=== PATIENT | male | born 1970 | race Caucasian/White ===

== ENCOUNTER 2018-01-27 16:27 | Inpatient (IN) | payer OTHER ==
[2018-01-27 18:07] LABS: BASO % 0.1 % (0.0-1.0); EOS % 0.2 % (0.0-3.0); HEMATOCRIT 39.6 % (42.0-52.0); HEMOGLOBIN 12.8 g/dl (13.5-17.5); LYMPH # 0.8 10^3/uL (1.5-4.5); LYMPH % 9.9 % (24.0-44.0); MEAN CORPUSCULAR HEMOGLOBIN 27.2 pg (27.0-33.0); MEAN CORPUSCULAR HGB CONC 32.3 g/dl (32.0-36.5); MEAN CORPUSCULAR VOLUME 84.3 fl (80.0-96.0); MONO # 0.2 10^3/uL (0.0-0.8); MONO % 2.2 % (0.0-5.0); NEUTROPHILS # 6.9 10^3/uL (1.8-7.7); NEUTROPHILS % 86.6 % (36.0-66.0); PLATELET COUNT, AUTOMATED 211 10^3/uL (150-450); RED CELL DISTRIBUTION WIDTH 13.2 % (11.5-14.5)
[2018-01-27 18:21] LABS: PROTHROMBIN TIME 14.4 SECONDS (12.1-14.4)
[2018-01-27 18:22] LABS: PARTIAL THROMBOPLASTIN TIME 31.8 SECONDS (25.4-37.6)
[2018-01-27 18:31] LABS: ALBUMIN 3.1 GM/DL (3.2-5.2); ALBUMIN/GLOBULIN RATIO 0.66 (1.00-1.93); ALKALINE PHOSPHATASE 52 U/L (45-117); ALT/SGPT 15 U/L (12-78); ANION GAP 9 MEQ/L (8-16); AST/SGOT 24 U/L (7-37); BILIRUBIN,DIRECT 0.1 MG/DL (0.0-0.2); BILIRUBIN,TOTAL 0.4 MG/DL (0.2-1.0); BLOOD UREA NITROGEN 19 MG/DL (7-18); CALCIUM LEVEL 8.8 MG/DL (8.5-10.1); CARBON DIOXIDE LEVEL 26 MEQ/L (21-32); CHLORIDE LEVEL 101 MEQ/L (98-107); CK-MB VALUE MASS < 1.0 NG/ML (<3.6); CPK CREATINE PHOSPHOKINASE 70 U/L (39-308); CREATININE FOR GFR 0.99 MG/DL (0.70-1.30); FREE T4 1.31 NG/DL (0.76-1.46); GLOMERULAR FILTRATION RATE > 60.0 (>60); GLUCOSE, FASTING 94 MG/DL (70-100); LIPASE 120 U/L (73-393); MB/CK RELATIVE INDEX 1.43 (< OR =4); POTASSIUM SERUM 4.3 MEQ/L (3.5-5.1); SODIUM LEVEL 136 MEQ/L (136-145); THYROID STIMULATING HORMONE 0.627 uIU/ML (0.358-3.740); TOTAL PROTEIN 7.8 GM/DL (6.4-8.2); TROPONIN I < 0.02 NG/ML (< 0.10)
[2018-01-27] MEDS ORDERED: ISOVUE-370 76% 100ML VIAL (Q9967) As Ordered (19:34)
[2018-01-27] MEDS: PIPERACILLIN/TAZOBACTAM SOD 3.375 GM in D5W MINI-BAG PLUS 50 ML IV (21:30)
[2018-01-28] MEDS: D5W/0.45% SODIUM CHLORIDE 1,000 ML IV ×3 (02:31→20:52)
[2018-01-28] MEDS: ACETAMINOPHEN TAB 650MG DOSE (2X325MG) PO ×2 (02:31→11:38)
[2018-01-28] MEDS: VANCOMYCIN ORAL SOL 250MG/5ML ORAL SYRINGE PO ×5 (02:31→23:45)
[2018-01-28] MEDS: PIPERACILLIN/TAZOBACTAM SOD 3.375 GM in D5W MINI-BAG PLUS 50 ML IV ×3 (05:38→21:01)
[2018-01-28] MEDS: ENOXAPARIN 30 MG/0.3 ML SYR (J1650) SC (07:05)
[2018-01-28 07:58] LABS: ALBUMIN 2.8 GM/DL (3.2-5.2); ALBUMIN/GLOBULIN RATIO 0.61 (1.00-1.93); ALKALINE PHOSPHATASE 48 U/L (45-117); ALT/SGPT 16 U/L (12-78); ANION GAP 10 MEQ/L (8-16); AST/SGOT 27 U/L (7-37); BILIRUBIN,TOTAL 0.4 MG/DL (0.2-1.0); BLOOD UREA NITROGEN 22 MG/DL (7-18); C REACTIVE PROTEIN QUANTITATIV 9.31 MG/DL (0.00-0.30); CALCIUM LEVEL 8.6 MG/DL (8.5-10.1); CARBON DIOXIDE LEVEL 27 MEQ/L (21-32); CHLORIDE LEVEL 101 MEQ/L (98-107); CREATININE FOR GFR 1.09 MG/DL (0.70-1.30); GLOMERULAR FILTRATION RATE > 60.0 (>60); GLUCOSE, FASTING 108 MG/DL (70-100); POTASSIUM SERUM 4.1 MEQ/L (3.5-5.1); SODIUM LEVEL 138 MEQ/L (136-145); TOTAL PROTEIN 7.4 GM/DL (6.4-8.2)
[2018-01-28 08:06] LABS: HEMATOCRIT 38.3 % (42.0-52.0); HEMOGLOBIN 12.3 g/dl (13.5-17.5); MEAN CORPUSCULAR HEMOGLOBIN 27.5 pg (27.0-33.0); MEAN CORPUSCULAR HGB CONC 32.1 g/dl (32.0-36.5); MEAN CORPUSCULAR VOLUME 85.7 fl (80.0-96.0); PLATELET COUNT, AUTOMATED 221 10^3/uL (150-450); RED BLOOD COUNT 4.47 10^6/uL (4.30-6.10); RED CELL DISTRIBUTION WIDTH 13.5 % (11.5-14.5); WHITE BLOOD COUNT 5.1 10^3/uL (4.0-10.0)
[2018-01-28] MEDS: VITAMIN B COMPLEX/VIT C CAP PO (08:22)
[2018-01-28] MEDS: LACTOBACILLUS ACIDOPHILUS CAP (BACID) PO (08:22)
[2018-01-28] MEDS: INFLUENZA QUADRIVALENT PF VACCINE 0.5ML SYRINGE (90686) IM (08:23)
[2018-01-28 10:40] LABS: LDH LACTATE DEHYDROGENASE 251 U/L (87-241)
[2018-01-29] MEDS: VANCOMYCIN ORAL SOL 250MG/5ML ORAL SYRINGE PO ×2 (05:15→13:29)
[2018-01-29] MEDS: PIPERACILLIN/TAZOBACTAM SOD 3.375 GM in D5W MINI-BAG PLUS 50 ML IV ×3 (05:15→21:38)
[2018-01-29 06:54] LABS: BASO % 0.2 % (0.0-1.0); EOS # 0.2 10^3/uL (0.0-0.50); EOS % 3.5 % (0.0-3.0); HEMATOCRIT 33.5 % (42.0-52.0); IMMATURE GRANULOCYTE % 0.5 % (0-3.0); LYMPH % 17.9 % (24.0-44.0); MEAN CORPUSCULAR HEMOGLOBIN 27.4 pg (27.0-33.0); MEAN CORPUSCULAR HGB CONC 32.8 g/dl (32.0-36.5); MEAN CORPUSCULAR VOLUME 83.3 fl (80.0-96.0); MONO # 0.4 10^3/uL (0.0-0.8); MONO % 6.6 % (0.0-5.0); NEUTROPHILS # 3.9 10^3/uL (1.8-7.7); NEUTROPHILS % 71.3 % (36.0-66.0); PLATELET COUNT, AUTOMATED 203 10^3/uL (150-450); RED BLOOD COUNT 4.02 10^6/uL (4.30-6.10); RED CELL DISTRIBUTION WIDTH 13.2 % (11.5-14.5); WHITE BLOOD COUNT 5.5 10^3/uL (4.0-10.0)
[2018-01-29 07:16] LABS: ALBUMIN 2.3 GM/DL (3.2-5.2); ALBUMIN/GLOBULIN RATIO 0.51 (1.00-1.93); ALKALINE PHOSPHATASE 41 U/L (45-117); ALT/SGPT 15 U/L (12-78); ANION GAP 7 MEQ/L (8-16); AST/SGOT 23 U/L (7-37); BILIRUBIN,TOTAL 0.3 MG/DL (0.2-1.0); BLOOD UREA NITROGEN 14 MG/DL (7-18); C REACTIVE PROTEIN QUANTITATIV 7.87 MG/DL (0.00-0.30); CALCIUM LEVEL 8.1 MG/DL (8.5-10.1); CARBON DIOXIDE LEVEL 26 MEQ/L (21-32); CHLORIDE LEVEL 103 MEQ/L (98-107); CREATININE FOR GFR 0.98 MG/DL (0.70-1.30); GLOMERULAR FILTRATION RATE > 60.0 (>60); GLUCOSE, FASTING 99 MG/DL (70-100); POTASSIUM SERUM 3.2 MEQ/L (3.5-5.1); SODIUM LEVEL 136 MEQ/L (136-145); TOTAL PROTEIN 6.8 GM/DL (6.4-8.2)
[2018-01-29] MEDS: ENOXAPARIN 30 MG/0.3 ML SYR (J1650) SC (08:11)
[2018-01-29] MEDS: D5W/0.45% SODIUM CHLORIDE 1,000 ML IV ×2 (08:38→15:37)
[2018-01-29] MEDS ORDERED: LIDOCAINE 1% MDV 20ML VIAL As Ordered (09:23)
[2018-01-29] MEDS ORDERED: LIDOCAINE VISCOUS 2% SOLN 15ML UDC As Ordered (09:25)
[2018-01-29] MEDS ORDERED: LIDOCAINE 4% INJ 5 ML AMP As Ordered ×2 (09:25→09:45)
[2018-01-29] MEDS ORDERED: EPINEPHrine 1MG/10ML SYRINGE 1.5IN As Ordered (09:25)
[2018-01-29] MEDS ORDERED: CETACAINE SPRAY 5GM As Ordered (09:26)
[2018-01-29] MEDS ORDERED: ALBUTEROL SULFATE 2.5 MG/0.5 ML INH NEB SOLN As Ordered (09:46)
[2018-01-29] MEDS: ALBUTEROL SULFATE 2.5 MG/0.5 ML INH NEB SOLN INH (10:00)
[2018-01-29] MEDS: LIDOCAINE 4% INJ 5 ML AMP INH (10:00)
[2018-01-29] MEDS ORDERED: MIDAZOLAM INJ 2 MG/2 ML VIAL (J2250) As Ordered (10:20)
[2018-01-29] MEDS ORDERED: ONDANSETRON 4MG/2ML VIAL (J2405) As Ordered (10:20)
[2018-01-29] MEDS ORDERED: dexameTHASONE 4 MG/ML 1ML VIAL (J1100) As Ordered (10:20)
[2018-01-29] MEDS ORDERED: fentaNYL 100 MCG/2 ML INJECTION (J3010) As Ordered ×2 (10:20→11:05)
[2018-01-29] MEDS ORDERED: LIDOCAINE 2% INJ 100 MG/5 ML SDV (FOR ANES.) As Ordered (10:29)
[2018-01-29] MEDS: LIDOCAINE VISCOUS 2% SOLN 15ML UDC SSP (10:50)
[2018-01-29] MEDS: LIDOCAINE 4% INJ 5 ML AMP XX (10:55)
[2018-01-29] MEDS: CETACAINE SPRAY 5GM MT (10:56)
[2018-01-29] MEDS: LIDOCAINE 1% SDV INJ 30 ML VIAL XX (11:10)
[2018-01-29] MEDS ORDERED: PHENYLephrine HCL 500 MCG/5 ML (100MCG/ML) SYRINGE (J2370) As Ordered (11:10)
[2018-01-29] MEDS: LACTOBACILLUS ACIDOPHILUS CAP (BACID) PO (13:28)
[2018-01-29] MEDS: VITAMIN B COMPLEX/VIT C CAP PO (13:28)
[2018-01-29] MEDS: POTASSIUM CHLORIDE 10 MEQ SR TABLET PO (13:29)
[2018-01-29 14:27] LABS: APPEARANCE TURBID (CLEAR); BAL DIFF IF INDICATED? YES (NO); BAL WBC 322 CELLS/uL (0-10); COLOR COLORLESS (COLORLESS); DILUTION FACTOR 1; SOURCE RIGHT LOWER LOBE; WBC BAL COUNTED 290
[2018-01-29 14:29] LABS: APPEARANCE TURBID (CLEAR); BAL DIFF IF INDICATED? YES (NO); BAL WBC 350 CELLS/uL (0-10); COLOR COLORLESS (COLORLESS); DILUTION FACTOR 1; SOURCE RIGHT UPPER LOBE; WBC BAL COUNTED 315
[2018-01-29 15:23] LABS: MONOCYTES/MACROPHAGES, BAL 9 %
[2018-01-29 15:27] LABS: MONOCYTES/MACROPHAGES, BAL 12 %
[2018-01-29 15:35] LABS: CC BAL DIFF EXAM CYTOCENTRIFUGE
[2018-01-29] MEDS ORDERED: VANCOMYCIN HCL 1,000 MG, VIAL MATE ADAPTER 1 EACH in D5W 250 ML IV ×3 (16:15→18:00)
[2018-01-29] MEDS: predniSONE 20 MG TAB PO (18:53)
[2018-01-29] MEDS: TRIMETHOPRIM/SULFAMETHOXAZOLE 600 MG in D5W 500 ML IV (19:49)
[2018-01-29] MEDS: diphenhydrAMINE 25 MG CAP PO (23:15)
[2018-01-30] MEDS: PIPERACILLIN/TAZOBACTAM SOD 3.375 GM in D5W MINI-BAG PLUS 50 ML IV ×4 (01:32→20:48)
[2018-01-30] MEDS: TRIMETHOPRIM/SULFAMETHOXAZOLE 600 MG in D5W 500 ML IV ×3 (02:39→18:25)
[2018-01-30] MEDS: D5W/0.45% SODIUM CHLORIDE 1,000 ML IV (03:20)
[2018-01-30] MEDS: NS 1,000 ML IV ×3 (03:52→05:46)
[2018-01-30 06:04] LABS: HEMATOCRIT 33.1 % (42.0-52.0); HEMOGLOBIN 10.9 g/dl (13.5-17.5); LYMPH % 16.9 % (24.0-44.0); MEAN CORPUSCULAR HEMOGLOBIN 27.5 pg (27.0-33.0); MEAN CORPUSCULAR HGB CONC 32.9 g/dl (32.0-36.5); MEAN CORPUSCULAR VOLUME 83.6 fl (80.0-96.0); MONO % 5.4 % (0.0-5.0); NEUTROPHILS % 76.8 % (36.0-66.0); PLATELET COUNT, AUTOMATED 180 10^3/uL (150-450); RED BLOOD COUNT 3.96 10^6/uL (4.30-6.10); RED CELL DISTRIBUTION WIDTH 13.2 % (11.5-14.5); WHITE BLOOD COUNT 3.3 10^3/uL (4.0-10.0)
[2018-01-30 06:05] LABS: IMMATURE GRANULOCYTE % 0.9 % (0-3.0); LYMPH # 0.6 10^3/uL (1.5-4.5); MONO # 0.2 10^3/uL (0.0-0.8); NEUTROPHILS # 2.6 10^3/uL (1.8-7.7)
[2018-01-30 06:38] LABS: ALBUMIN 2.2 GM/DL (3.2-5.2); ALBUMIN/GLOBULIN RATIO 0.54 (1.00-1.93); ALKALINE PHOSPHATASE 37 U/L (45-117); ALT/SGPT 13 U/L (12-78); ANION GAP 8 MEQ/L (8-16); AST/SGOT 16 U/L (7-37); BILIRUBIN,TOTAL 0.2 MG/DL (0.2-1.0); BLOOD UREA NITROGEN 8 MG/DL (7-18); CALCIUM LEVEL 8.3 MG/DL (8.5-10.1); CARBON DIOXIDE LEVEL 24 MEQ/L (21-32); CHLORIDE LEVEL 109 MEQ/L (98-107); GLOMERULAR FILTRATION RATE > 60.0 (>60); GLUCOSE, FASTING 153 MG/DL (70-100); POTASSIUM SERUM 4.3 MEQ/L (3.5-5.1); SODIUM LEVEL 141 MEQ/L (136-145); TOTAL PROTEIN 6.3 GM/DL (6.4-8.2)
[2018-01-30 07:38] LABS: CC BAL DIFF EXAM CYTOCENTRIFUGE
[2018-01-30] MEDS: traMADol 50 MG TAB PO ×2 (08:35→14:20)
[2018-01-30] MEDS: LACTOBACILLUS ACIDOPHILUS CAP (BACID) PO (09:17)
[2018-01-30] MEDS: ENOXAPARIN 30 MG/0.3 ML SYR (J1650) SC (09:18)
[2018-01-30 10:57] LABS: HEPATITIS C VIRUS ABY INDEX 0.1 INDEX (<0.8)
[2018-01-30 10:57] LABS: HEPATITIS B SURFACE ANTIBODY NEGATIVE (POSITIVE); HEPATITIS B SURFACE ANTIGEN NEGATIVE (NEGATIVE)
[2018-01-30 14:13] LABS: HIV-1 RNA ULTRA 1 68870 copies/mL (.); HIV-1 RNA ULTRA 3 4.838 (.)
[2018-01-30] MEDS: VITAMIN B COMPLEX/VIT C CAP PO (14:19)
[2018-01-30] MEDS: SLF 3 ML SYR IV ×2 (14:20→20:48)
[2018-01-30] MEDS: predniSONE 20 MG TAB PO (18:25)
[2018-01-30] MEDS: ACETAMINOPHEN TAB 650MG DOSE (2X325MG) PO (20:49)
[2018-01-31] MEDS: TRIMETHOPRIM/SULFAMETHOXAZOLE 600 MG in D5W 500 ML IV ×3 (01:44→18:26)
[2018-01-31] MEDS: PIPERACILLIN/TAZOBACTAM SOD 3.375 GM in D5W MINI-BAG PLUS 50 ML IV ×4 (03:44→20:00)
[2018-01-31] MEDS: SLF 3 ML SYR IV ×3 (05:50→21:29)
[2018-01-31] MEDS: traMADol 50 MG TAB PO ×2 (05:55→20:22)
[2018-01-31 06:31] LABS: BASO % 0.2 % (0.0-1.0); HEMATOCRIT 34.7 % (42.0-52.0); HEMOGLOBIN 11.4 g/dl (13.5-17.5); IMMATURE GRANULOCYTE % 1.4 % (0-3.0); LYMPH # 0.5 10^3/uL (1.5-4.5); LYMPH % 10.3 % (24.0-44.0); MEAN CORPUSCULAR HEMOGLOBIN 27.1 pg (27.0-33.0); MEAN CORPUSCULAR HGB CONC 32.9 g/dl (32.0-36.5); MEAN CORPUSCULAR VOLUME 82.6 fl (80.0-96.0); MONO # 0.3 10^3/uL (0.0-0.8); MONO % 5.3 % (0.0-5.0); NEUTROPHILS # 4.3 10^3/uL (1.8-7.7); NEUTROPHILS % 82.8 % (36.0-66.0); PLATELET COUNT, AUTOMATED 206 10^3/uL (150-450); RED CELL DISTRIBUTION WIDTH 13.3 % (11.5-14.5); WHITE BLOOD COUNT 5.1 10^3/uL (4.0-10.0)
[2018-01-31 06:57] LABS: ALBUMIN 2.1 GM/DL (3.2-5.2); ALBUMIN/GLOBULIN RATIO 0.49 (1.00-1.93); ALKALINE PHOSPHATASE 38 U/L (45-117); ALT/SGPT 12 U/L (12-78); ANION GAP 8 MEQ/L (8-16); AST/SGOT 20 U/L (7-37); BILIRUBIN,TOTAL 0.2 MG/DL (0.2-1.0); BLOOD UREA NITROGEN 8 MG/DL (7-18); C REACTIVE PROTEIN QUANTITATIV 6.54 MG/DL (0.00-0.30); CARBON DIOXIDE LEVEL 24 MEQ/L (21-32); CHLORIDE LEVEL 105 MEQ/L (98-107); CREATININE FOR GFR 1.14 MG/DL (0.70-1.30); GLOMERULAR FILTRATION RATE > 60.0 (>60); GLUCOSE, FASTING 126 MG/DL (70-100); POTASSIUM SERUM 4.3 MEQ/L (3.5-5.1); SODIUM LEVEL 137 MEQ/L (136-145); TOTAL PROTEIN 6.4 GM/DL (6.4-8.2)
[2018-01-31] MEDS: LACTOBACILLUS ACIDOPHILUS CAP (BACID) PO (09:38)
[2018-01-31] MEDS: ENOXAPARIN 30 MG/0.3 ML SYR (J1650) SC (09:39)
[2018-01-31] MEDS: VITAMIN B COMPLEX/VIT C CAP PO (10:35)
[2018-01-31] MEDS: ONDANSETRON 4 MG TAB (S0181) PO (14:38)
[2018-01-31] MEDS: ONDANSETRON 4MG/2ML VIAL (J2405) IV ×2 (16:36→20:22)
[2018-01-31] MEDS: predniSONE 20 MG TAB PO (18:26)
[2018-01-31] MEDS: ACETAMINOPHEN TAB 650MG DOSE (2X325MG) PO (21:07)
[2018-02-01 00:06] LABS: QuantiFERON-TB Gold Plus Negative (Negative)
[2018-02-01] MEDS: PIPERACILLIN/TAZOBACTAM SOD 3.375 GM in D5W MINI-BAG PLUS 50 ML IV ×4 (01:21→20:00)
[2018-02-01] MEDS: TRIMETHOPRIM/SULFAMETHOXAZOLE 600 MG in D5W 500 ML IV ×3 (02:50→17:50)
[2018-02-01] MEDS: SLF 3 ML SYR IV ×3 (05:04→21:10)
[2018-02-01 05:17] LABS: HEMATOCRIT 34.9 % (42.0-52.0); HEMOGLOBIN 11.4 g/dl (13.5-17.5); IMMATURE GRANULOCYTE % 0.6 % (0-3.0); LYMPH # 0.5 10^3/uL (1.5-4.5); LYMPH % 9.6 % (24.0-44.0); MEAN CORPUSCULAR HEMOGLOBIN 27.1 pg (27.0-33.0); MEAN CORPUSCULAR HGB CONC 32.7 g/dl (32.0-36.5); MEAN CORPUSCULAR VOLUME 82.9 fl (80.0-96.0); MONO # 0.2 10^3/uL (0.0-0.8); MONO % 3.1 % (0.0-5.0); NEUTROPHILS # 4.2 10^3/uL (1.8-7.7); NEUTROPHILS % 86.7 % (36.0-66.0); PLATELET COUNT, AUTOMATED 201 10^3/uL (150-450); RED BLOOD COUNT 4.21 10^6/uL (4.30-6.10); RED CELL DISTRIBUTION WIDTH 13.5 % (11.5-14.5); WHITE BLOOD COUNT 4.8 10^3/uL (4.0-10.0)
[2018-02-01 05:47] LABS: ALKALINE PHOSPHATASE 42 U/L (45-117); ALT/SGPT 13 U/L (12-78); ANION GAP 6 MEQ/L (8-16); AST/SGOT 21 U/L (7-37); BILIRUBIN,TOTAL 0.2 MG/DL (0.2-1.0); BLOOD UREA NITROGEN 10 MG/DL (7-18); CALCIUM LEVEL 8.5 MG/DL (8.5-10.1); CARBON DIOXIDE LEVEL 28 MEQ/L (21-32); CHLORIDE LEVEL 100 MEQ/L (98-107); CREATININE FOR GFR 1.05 MG/DL (0.70-1.30); GLOMERULAR FILTRATION RATE > 60.0 (>60); GLUCOSE, FASTING 176 MG/DL (70-100); POTASSIUM SERUM 4.5 MEQ/L (3.5-5.1); SODIUM LEVEL 134 MEQ/L (136-145)
[2018-02-01] MEDS: traMADol 50 MG TAB PO ×2 (06:04→21:10)
[2018-02-01] MEDS: LACTOBACILLUS ACIDOPHILUS CAP (BACID) PO (09:29)
[2018-02-01] MEDS: VITAMIN B COMPLEX/VIT C CAP PO (09:29)
[2018-02-01] MEDS: predniSONE 20 MG TAB PO ×2 (09:29→21:09)
[2018-02-01] MEDS: ENOXAPARIN 30 MG/0.3 ML SYR (J1650) SC (09:31)
[2018-02-01] MEDS: CALCIUM CARBONATE 500 MG CHEW U/D PO (13:31)
[2018-02-01] MEDS: MAALOX 30 ML SUSP *UDC PO (16:24)
[2018-02-01] MEDS: ACETAMINOPHEN TAB 650MG DOSE (2X325MG) PO (23:44)
[2018-02-01] MEDS: ONDANSETRON 4 MG TAB (S0181) PO (23:45)
[2018-02-02] MEDS: PIPERACILLIN/TAZOBACTAM SOD 3.375 GM in D5W MINI-BAG PLUS 50 ML IV ×4 (02:00→20:08)
[2018-02-02] MEDS: TRIMETHOPRIM/SULFAMETHOXAZOLE 600 MG in D5W 500 ML IV ×3 (03:00→18:38)
[2018-02-02] MEDS: traMADol 50 MG TAB PO ×3 (04:57→22:35)
[2018-02-02] MEDS: ONDANSETRON 4 MG TAB (S0181) PO ×2 (04:58→09:07)
[2018-02-02] MEDS: ONDANSETRON 4MG/2ML VIAL (J2405) IV ×3 (05:00→16:32)
[2018-02-02] MEDS: SLF 3 ML SYR IV ×3 (05:16→20:08)
[2018-02-02 05:30] LABS: BASO % 0.2 % (0.0-1.0); HEMATOCRIT 34.8 % (42.0-52.0); HEMOGLOBIN 11.3 g/dl (13.5-17.5); IMMATURE GRANULOCYTE % 1.2 % (0-3.0); LYMPH # 0.5 10^3/uL (1.5-4.5); MEAN CORPUSCULAR HEMOGLOBIN 27.1 pg (27.0-33.0); MEAN CORPUSCULAR HGB CONC 32.5 g/dl (32.0-36.5); MEAN CORPUSCULAR VOLUME 83.5 fl (80.0-96.0); MONO # 0.1 10^3/uL (0.0-0.8); MONO % 2.2 % (0.0-5.0); NEUTROPHILS # 4.3 10^3/uL (1.8-7.7); NEUTROPHILS % 86.4 % (36.0-66.0); PLATELET COUNT, AUTOMATED 201 10^3/uL (150-450); RED BLOOD COUNT 4.17 10^6/uL (4.30-6.10); RED CELL DISTRIBUTION WIDTH 13.4 % (11.5-14.5)
[2018-02-02 05:43] LABS: ALBUMIN/GLOBULIN RATIO 0.43 (1.00-1.93); ALKALINE PHOSPHATASE 41 U/L (45-117); ALT/SGPT 14 U/L (12-78); ANION GAP 8 MEQ/L (8-16); AST/SGOT 21 U/L (7-37); BILIRUBIN,TOTAL 0.1 MG/DL (0.2-1.0); BLOOD UREA NITROGEN 13 MG/DL (7-18); C REACTIVE PROTEIN QUANTITATIV 7.36 MG/DL (0.00-0.30); CALCIUM LEVEL 8.5 MG/DL (8.5-10.1); CARBON DIOXIDE LEVEL 27 MEQ/L (21-32); CHLORIDE LEVEL 98 MEQ/L (98-107); CREATININE FOR GFR 1.11 MG/DL (0.70-1.30); GLOMERULAR FILTRATION RATE > 60.0 (>60); GLUCOSE, FASTING 187 MG/DL (70-100); POTASSIUM SERUM 4.3 MEQ/L (3.5-5.1); SODIUM LEVEL 133 MEQ/L (136-145); TOTAL PROTEIN 6.7 GM/DL (6.4-8.2)
[2018-02-02] MEDS: predniSONE 20 MG TAB PO (09:07)
[2018-02-02] MEDS: ENOXAPARIN 30 MG/0.3 ML SYR (J1650) SC (09:07)
[2018-02-02] MEDS: VITAMIN B COMPLEX/VIT C CAP PO (09:07)
[2018-02-02] MEDS: LACTOBACILLUS ACIDOPHILUS CAP (BACID) PO (09:07)
[2018-02-02] MEDS: PANTOPRAZOLE 40MG TAB (PROTONIX) PO (10:57)
[2018-02-02] MEDS: MAALOX 30 ML SUSP *UDC PO ×3 (11:05→22:34)
[2018-02-02] MEDS: methylPREDNISolone INJ 125 MG/2 ML VIAL (J2930) IV (18:41)
[2018-02-03] MEDS: TRIMETHOPRIM/SULFAMETHOXAZOLE 600 MG in D5W 500 ML IV ×3 (01:58→18:18)
[2018-02-03] MEDS: PIPERACILLIN/TAZOBACTAM SOD 3.375 GM in D5W MINI-BAG PLUS 50 ML IV ×4 (03:23→19:34)
[2018-02-03 05:45] LABS: HEMATOCRIT 34.2 % (42.0-52.0); IMMATURE GRANULOCYTE % 0.9 % (0-3.0); LYMPH # 0.3 10^3/uL (1.5-4.5); LYMPH % 10.2 % (24.0-44.0); MEAN CORPUSCULAR HEMOGLOBIN 26.6 pg (27.0-33.0); MEAN CORPUSCULAR HGB CONC 32.2 g/dl (32.0-36.5); MEAN CORPUSCULAR VOLUME 82.8 fl (80.0-96.0); MONO # 0.2 10^3/uL (0.0-0.8); MONO % 4.6 % (0.0-5.0); NEUTROPHILS # 2.7 10^3/uL (1.8-7.7); NEUTROPHILS % 84.3 % (36.0-66.0); PLATELET COUNT, AUTOMATED 190 10^3/uL (150-450); RED BLOOD COUNT 4.13 10^6/uL (4.30-6.10); RED CELL DISTRIBUTION WIDTH 13.5 % (11.5-14.5); WHITE BLOOD COUNT 3.3 10^3/uL (4.0-10.0)
[2018-02-03] MEDS: methylPREDNISolone INJ 125 MG/2 ML VIAL (J2930) IV (05:52)
[2018-02-03] MEDS: SLF 3 ML SYR IV ×3 (05:52→19:35)
[2018-02-03 06:23] LABS: ALBUMIN/GLOBULIN RATIO 0.43 (1.00-1.93); ALKALINE PHOSPHATASE 40 U/L (45-117); ALT/SGPT 13 U/L (12-78); ANION GAP 11 MEQ/L (8-16); AST/SGOT 20 U/L (7-37); BILIRUBIN,TOTAL 0.2 MG/DL (0.2-1.0); BLOOD UREA NITROGEN 14 MG/DL (7-18); C REACTIVE PROTEIN QUANTITATIV 2.55 MG/DL (0.00-0.30); CALCIUM LEVEL 8.3 MG/DL (8.5-10.1); CARBON DIOXIDE LEVEL 23 MEQ/L (21-32); CHLORIDE LEVEL 99 MEQ/L (98-107); CREATININE FOR GFR 1.06 MG/DL (0.70-1.30); GLOMERULAR FILTRATION RATE > 60.0 (>60); GLUCOSE, FASTING 108 MG/DL (70-100); POTASSIUM SERUM 4.2 MEQ/L (3.5-5.1); SODIUM LEVEL 133 MEQ/L (136-145); TOTAL PROTEIN 6.6 GM/DL (6.4-8.2)
[2018-02-03 08:06] LABS: HEPATITIS B CORE ANTIBODY IGG Negative (Negative); RPR Reactive (Non Reactive); T PALLIDUM ANTIBODIES Positive (Negative)
[2018-02-03 08:06] LABS: HEPATITIS A IgG TOTAL Positive (Negative)
[2018-02-03] MEDS: LACTOBACILLUS ACIDOPHILUS CAP (BACID) PO (08:17)
[2018-02-03] MEDS: ENOXAPARIN 30 MG/0.3 ML SYR (J1650) SC (08:17)
[2018-02-03] MEDS: VITAMIN B COMPLEX/VIT C CAP PO (08:17)
[2018-02-03] MEDS: PANTOPRAZOLE 40MG INJ (PROTONIX) (C9113) IV (08:17)
[2018-02-03] MEDS: ONDANSETRON 4MG/2ML VIAL (J2405) IV ×3 (08:55→18:18)
[2018-02-03] MEDS: MAALOX 30 ML SUSP *UDC PO ×2 (08:55→14:29)
[2018-02-03] MEDS: ONDANSETRON 4 MG TAB (S0181) PO (19:35)
[2018-02-04] MEDS: MAALOX 30 ML SUSP *UDC PO (00:54)
[2018-02-04] MEDS: ONDANSETRON 4MG/2ML VIAL (J2405) IV ×4 (00:54→22:53)
[2018-02-04] MEDS: PIPERACILLIN/TAZOBACTAM SOD 3.375 GM in D5W MINI-BAG PLUS 50 ML IV ×4 (01:00→19:45)
[2018-02-04] MEDS: TRIMETHOPRIM/SULFAMETHOXAZOLE 600 MG in D5W 500 ML IV ×3 (02:00→18:12)
[2018-02-04] MEDS: traMADol 50 MG TAB PO (05:03)
[2018-02-04] MEDS: SLF 3 ML SYR IV ×3 (05:36→22:00)
[2018-02-04 05:46] LABS: HEMATOCRIT 37.6 % (42.0-52.0); HEMOGLOBIN 12.5 g/dl (13.5-17.5); IMMATURE GRANULOCYTE % 1.3 % (0-3.0); LYMPH # 0.3 10^3/uL (1.5-4.5); LYMPH % 7.5 % (24.0-44.0); MEAN CORPUSCULAR HEMOGLOBIN 27.1 pg (27.0-33.0); MEAN CORPUSCULAR HGB CONC 33.2 g/dl (32.0-36.5); MEAN CORPUSCULAR VOLUME 81.6 fl (80.0-96.0); MONO # 0.1 10^3/uL (0.0-0.8); MONO % 3.3 % (0.0-5.0); NEUTROPHILS # 3.5 10^3/uL (1.8-7.7); NEUTROPHILS % 87.9 % (36.0-66.0); PLATELET COUNT, AUTOMATED 171 10^3/uL (150-450); RED BLOOD COUNT 4.61 10^6/uL (4.30-6.10); RED CELL DISTRIBUTION WIDTH 13.5 % (11.5-14.5)
[2018-02-04 06:17] LABS: ALBUMIN 2.3 GM/DL (3.2-5.2); ALBUMIN/GLOBULIN RATIO 0.48 (1.00-1.93); ALKALINE PHOSPHATASE 48 U/L (45-117); ALT/SGPT 18 U/L (12-78); ANION GAP 8 MEQ/L (8-16); AST/SGOT 24 U/L (7-37); BILIRUBIN,TOTAL 0.2 MG/DL (0.2-1.0); BLOOD UREA NITROGEN 15 MG/DL (7-18); C REACTIVE PROTEIN QUANTITATIV 1.74 MG/DL (0.00-0.30); CALCIUM LEVEL 8.6 MG/DL (8.5-10.1); CARBON DIOXIDE LEVEL 27 MEQ/L (21-32); CHLORIDE LEVEL 92 MEQ/L (98-107); CREATININE FOR GFR 1.31 MG/DL (0.70-1.30); GLOMERULAR FILTRATION RATE > 60.0 (>60); GLUCOSE, FASTING 89 MG/DL (70-100); POTASSIUM SERUM 4.1 MEQ/L (3.5-5.1); SODIUM LEVEL 127 MEQ/L (136-145); TOTAL PROTEIN 7.1 GM/DL (6.4-8.2)
[2018-02-04] MEDS: methylPREDNISolone INJ 40 MG/1 ML VIAL (J2920) IV (08:28)
[2018-02-04] MEDS: ACETAMINOPHEN TAB 650MG DOSE (2X325MG) PO ×2 (08:28→23:48)
[2018-02-04] MEDS: PANTOPRAZOLE 40MG INJ (PROTONIX) (C9113) IV (08:28)
[2018-02-04] MEDS: ENOXAPARIN 30 MG/0.3 ML SYR (J1650) SC (08:29)
[2018-02-04] MEDS: VITAMIN B COMPLEX/VIT C CAP PO (11:01)
[2018-02-04] MEDS: METOCLOPRAMIDE INJ 10MG/2ML VIAL (J2765) IV ×2 (11:01→18:12)
[2018-02-04] MEDS: LACTOBACILLUS ACIDOPHILUS CAP (BACID) PO (11:01)
[2018-02-05] MEDS: PIPERACILLIN/TAZOBACTAM SOD 3.375 GM in D5W MINI-BAG PLUS 50 ML IV ×4 (01:23→21:14)
[2018-02-05] MEDS: TRIMETHOPRIM/SULFAMETHOXAZOLE 600 MG in D5W 500 ML IV ×3 (02:00→18:11)
[2018-02-05] MEDS: SLF 3 ML SYR IV ×3 (06:00→21:14)
[2018-02-05 07:27] LABS: HEMATOCRIT 38.1 % (42.0-52.0); HEMOGLOBIN 12.6 g/dl (13.5-17.5); MEAN CORPUSCULAR HEMOGLOBIN 27.3 pg (27.0-33.0); MEAN CORPUSCULAR HGB CONC 33.1 g/dl (32.0-36.5); MEAN CORPUSCULAR VOLUME 82.6 fl (80.0-96.0); PLATELET COUNT, AUTOMATED 139 10^3/uL (150-450); RED BLOOD COUNT 4.61 10^6/uL (4.30-6.10); RED CELL DISTRIBUTION WIDTH 13.5 % (11.5-14.5); WHITE BLOOD COUNT 3.6 10^3/uL (4.0-10.0)
[2018-02-05 07:54] LABS: ANION GAP 9 MEQ/L (8-16); BLOOD UREA NITROGEN 18 MG/DL (7-18); CALCIUM LEVEL 8.5 MG/DL (8.5-10.1); CARBON DIOXIDE LEVEL 26 MEQ/L (21-32); CHLORIDE LEVEL 94 MEQ/L (98-107); CREATININE FOR GFR 1.32 MG/DL (0.70-1.30); GLOMERULAR FILTRATION RATE > 60.0 (>60); GLUCOSE, FASTING 86 MG/DL (70-100); POTASSIUM SERUM 3.9 MEQ/L (3.5-5.1); SODIUM LEVEL 129 MEQ/L (136-145)
[2018-02-05] MEDS: ONDANSETRON 4 MG TAB (S0181) PO (08:09)
[2018-02-05] MEDS: LACTOBACILLUS ACIDOPHILUS CAP (BACID) PO (08:09)
[2018-02-05] MEDS: VITAMIN B COMPLEX/VIT C CAP PO (08:09)
[2018-02-05] MEDS: ENOXAPARIN 30 MG/0.3 ML SYR (J1650) SC (08:10)
[2018-02-05] MEDS: PANTOPRAZOLE 40MG INJ (PROTONIX) (C9113) IV (08:10)
[2018-02-05] MEDS: methylPREDNISolone INJ 40 MG/1 ML VIAL (J2920) IV (08:10)
[2018-02-05] MEDS: METOCLOPRAMIDE INJ 10MG/2ML VIAL (J2765) IV ×2 (09:30→17:27)
[2018-02-05] MEDS: NS 1,000 ML IV ×3 (12:20→21:14)
[2018-02-05] MEDS: ONDANSETRON 4MG/2ML VIAL (J2405) IV ×2 (13:31→21:13)
[2018-02-05] MEDS: MAALOX 30 ML SUSP *UDC PO (13:31)
[2018-02-05] MEDS: CALCIUM CARBONATE 500 MG CHEW U/D PO (17:27)
[2018-02-05] MEDS: hydrOXYzine 25 MG TAB PO (21:27)
[2018-02-06] MEDS: PERCOCET 5MG/325MG TAB PO (00:28)
[2018-02-06] MEDS: MAALOX 30 ML SUSP *UDC PO (00:28)
[2018-02-06] MEDS: PIPERACILLIN/TAZOBACTAM SOD 3.375 GM in D5W MINI-BAG PLUS 50 ML IV ×4 (01:45→20:03)
[2018-02-06] MEDS: TRIMETHOPRIM/SULFAMETHOXAZOLE 600 MG in D5W 500 ML IV ×3 (01:45→17:55)
[2018-02-06] MEDS: SLF 3 ML SYR IV ×6 (05:15→22:00)
[2018-02-06 05:42] LABS: HEMATOCRIT 37.4 % (42.0-52.0); HEMOGLOBIN 12.5 g/dl (13.5-17.5); IMMATURE GRANULOCYTE % 0.9 % (0-3.0); LYMPH % 5.9 % (24.0-44.0); MEAN CORPUSCULAR HEMOGLOBIN 27.1 pg (27.0-33.0); MEAN CORPUSCULAR HGB CONC 33.4 g/dl (32.0-36.5); MONO # 0.1 10^3/uL (0.0-0.8); MONO % 2.3 % (0.0-5.0); NEUTROPHILS % 90.9 % (36.0-66.0); PLATELET COUNT, AUTOMATED 122 10^3/uL (150-450); RED BLOOD COUNT 4.62 10^6/uL (4.30-6.10); RED CELL DISTRIBUTION WIDTH 13.5 % (11.5-14.5); WHITE BLOOD COUNT 2.2 10^3/uL (4.0-10.0)
[2018-02-06 06:04] LABS: LYMPH # 0.1 10^3/uL (1.5-4.5); POSITIVE DIFF POS FLAG
[2018-02-06 06:08] LABS: ALBUMIN 2.2 GM/DL (3.2-5.2); ALKALINE PHOSPHATASE 46 U/L (45-117); ALT/SGPT 29 U/L (12-78); ANION GAP 10 MEQ/L (8-16); AST/SGOT 36 U/L (7-37); BILIRUBIN,TOTAL 0.1 MG/DL (0.2-1.0); BLOOD UREA NITROGEN 16 MG/DL (7-18); C REACTIVE PROTEIN QUANTITATIV 2.95 MG/DL (0.00-0.30); CALCIUM LEVEL 8.3 MG/DL (8.5-10.1); CARBON DIOXIDE LEVEL 26 MEQ/L (21-32); CHLORIDE LEVEL 93 MEQ/L (98-107); CREATININE FOR GFR 1.37 MG/DL (0.70-1.30); GLUCOSE, FASTING 78 MG/DL (70-100); POTASSIUM SERUM 3.9 MEQ/L (3.5-5.1); SODIUM LEVEL 129 MEQ/L (136-145); TOTAL PROTEIN 6.6 GM/DL (6.4-8.2)
[2018-02-06] MEDS: ONDANSETRON 4MG/2ML VIAL (J2405) IV (06:09)
[2018-02-06] MEDS: METOCLOPRAMIDE INJ 10MG/2ML VIAL (J2765) IV ×2 (08:34→17:19)
[2018-02-06] MEDS: PANTOPRAZOLE 40MG INJ (PROTONIX) (C9113) IV (08:37)
[2018-02-06] MEDS: methylPREDNISolone INJ 40 MG/1 ML VIAL (J2920) IV (08:41)
[2018-02-06] MEDS: LACTOBACILLUS ACIDOPHILUS CAP (BACID) PO (08:43)
[2018-02-06] MEDS: ENOXAPARIN 30 MG/0.3 ML SYR (J1650) SC (08:46)
[2018-02-06] MEDS: VITAMIN B COMPLEX/VIT C CAP PO (09:00)
[2018-02-06] MEDS: NS 1,000 ML IV (13:15)
[2018-02-06 14:10] LABS: FUNGITELL, SERUM >500 pg/mL (<80)
[2018-02-06 14:10] LABS: ASPERGILLUS GALACTOMANNAN AG 1.22 Index (0.00-0.49)
[2018-02-06 14:10] LABS: ASPERGILLUS GALACTOMANNAN AG 0.08 Index (0.00-0.49); CRYPTOCOCCUS ANTIGEN SER Negative (Negative)
[2018-02-06] MEDS: ACETAMINOPHEN TAB 650MG DOSE (2X325MG) PO (23:19)
[2018-02-07 00:24] LABS: % CD4+ LYMPHS 2.4 % (30.8-58.5); ABSOLUTE CD4 HELPER 22 /uL (359-1519); BASOPHILS 0 % (Not Estab.); EOSINOPHILS 0 % (Not Estab.); HCT 36.5 % (37.5-51.0); HGB 12.3 g/dL (13.0-17.7); LYMPHOCYTES 18 % (Not Estab.); LYMPHOCYTES ABSOLUTE 0.9 x10E3/uL (0.7-3.1); MCH 28.2 pg (26.6-33.0); MCHC 33.7 g/dL (31.5-35.7); MCV 84 fL (79-97); MONOCYTES 6 % (Not Estab.); MONOCYTES ABSOLUTE 0.3 x10E3/uL (0.1-0.9); NEUTROPHILS 75 % (Not Estab.); NEUTROPHILS ABSOLUTE 3.8 x10E3/uL (1.4-7.0); PLT 224 x10E3/uL (150-379); RBC 4.36 x10E6/uL (4.14-5.80); RDW 14.4 % (12.3-15.4); WBC 5.1 x10E3/uL (3.4-10.8)
[2018-02-07] MEDS: NS 1,000 ML IV ×3 (01:45→18:40)
[2018-02-07] MEDS: PIPERACILLIN/TAZOBACTAM SOD 3.375 GM in D5W MINI-BAG PLUS 50 ML IV ×4 (02:00→21:29)
[2018-02-07] MEDS: METOCLOPRAMIDE INJ 10MG/2ML VIAL (J2765) IV ×4 (02:00→18:18)
[2018-02-07] MEDS: TRIMETHOPRIM/SULFAMETHOXAZOLE 600 MG in D5W 500 ML IV ×3 (03:19→18:40)
[2018-02-07] MEDS: SLF 3 ML SYR IV ×3 (05:52→21:29)
[2018-02-07 06:00] LABS: EOS % 0.5 % (0.0-3.0); HEMOGLOBIN 12.8 g/dl (13.5-17.5); IMMATURE GRANULOCYTE % 0.5 % (0-3.0); LYMPH % 10.3 % (24.0-44.0); MEAN CORPUSCULAR HEMOGLOBIN 27.3 pg (27.0-33.0); MEAN CORPUSCULAR HGB CONC 32.8 g/dl (32.0-36.5); MEAN CORPUSCULAR VOLUME 83.2 fl (80.0-96.0); MONO % 1.5 % (0.0-5.0); NEUTROPHILS # 1.8 10^3/uL (1.8-7.7); NEUTROPHILS % 87.2 % (36.0-66.0); PLATELET COUNT, AUTOMATED 104 10^3/uL (150-450); RED BLOOD COUNT 4.69 10^6/uL (4.30-6.10); RED CELL DISTRIBUTION WIDTH 13.6 % (11.5-14.5)
[2018-02-07 06:02] LABS: LYMPH # 0.2 10^3/uL (1.5-4.5); POSITIVE DIFF POS FLAG
[2018-02-07 06:41] LABS: ALBUMIN 2.3 GM/DL (3.2-5.2); ALKALINE PHOSPHATASE 50 U/L (45-117); ALT/SGPT 40 U/L (12-78); ANION GAP 9 MEQ/L (8-16); AST/SGOT 53 U/L (7-37); BILIRUBIN,TOTAL 0.2 MG/DL (0.2-1.0); BLOOD UREA NITROGEN 19 MG/DL (7-18); C REACTIVE PROTEIN QUANTITATIV 3.81 MG/DL (0.00-0.30); CALCIUM LEVEL 8.4 MG/DL (8.5-10.1); CARBON DIOXIDE LEVEL 26 MEQ/L (21-32); CHLORIDE LEVEL 91 MEQ/L (98-107); CREATININE FOR GFR 1.53 MG/DL (0.70-1.30); GLUCOSE, FASTING 95 MG/DL (70-100); MAGNESIUM LEVEL 2.2 MG/DL (1.8-2.4); POTASSIUM SERUM 3.8 MEQ/L (3.5-5.1); SODIUM LEVEL 126 MEQ/L (136-145); TOTAL PROTEIN 6.9 GM/DL (6.4-8.2)
[2018-02-07] MEDS: SODIUM CHLORIDE 0.9% 1000ML IV (07:30)
[2018-02-07] MEDS: VITAMIN B COMPLEX/VIT C CAP PO (09:16)
[2018-02-07] MEDS: ENOXAPARIN 30 MG/0.3 ML SYR (J1650) SC (09:16)
[2018-02-07] MEDS: PANTOPRAZOLE 40MG INJ (PROTONIX) (C9113) IV (09:16)
[2018-02-07] MEDS: LACTOBACILLUS ACIDOPHILUS CAP (BACID) PO (09:17)
[2018-02-07 09:20] LABS: OSMOLALITY SERUM 273 MOSM/KG (275-295)
[2018-02-07] MEDS: MAALOX 30 ML SUSP *UDC PO (13:43)
[2018-02-07] MEDS: ACETAMINOPHEN TAB 650MG DOSE (2X325MG) PO (13:43)
[2018-02-08] MEDS: METOCLOPRAMIDE INJ 10MG/2ML VIAL (J2765) IV ×4 (00:38→21:21)
[2018-02-08] MEDS: ACETAMINOPHEN TAB 650MG DOSE (2X325MG) PO (01:36)
[2018-02-08] MEDS: PIPERACILLIN/TAZOBACTAM SOD 3.375 GM in D5W MINI-BAG PLUS 50 ML IV ×2 (01:37→08:54)
[2018-02-08] MEDS: NS 1,000 ML IV ×5 (01:40→19:30)
[2018-02-08] MEDS: TRIMETHOPRIM/SULFAMETHOXAZOLE 600 MG in D5W 500 ML IV ×2 (01:51→10:22)
[2018-02-08 05:11] LABS: HEMATOCRIT 30.6 % (42.0-52.0); MEAN CORPUSCULAR HEMOGLOBIN 27.8 pg (27.0-33.0); MEAN CORPUSCULAR HGB CONC 34.3 g/dl (32.0-36.5); RED BLOOD COUNT 3.78 10^6/uL (4.30-6.10); RED CELL DISTRIBUTION WIDTH 13.6 % (11.5-14.5)
[2018-02-08 05:31] LABS: ALBUMIN 1.9 GM/DL (3.2-5.2); ALKALINE PHOSPHATASE 41 U/L (45-117); ALT/SGPT 49 U/L (12-78); ANION GAP 6 MEQ/L (8-16); AST/SGOT 65 U/L (7-37); BILIRUBIN,TOTAL 0.1 MG/DL (0.2-1.0); BLOOD UREA NITROGEN 16 MG/DL (7-18); CALCIUM LEVEL 7.5 MG/DL (8.5-10.1); CARBON DIOXIDE LEVEL 25 MEQ/L (21-32); CHLORIDE LEVEL 93 MEQ/L (98-107); CREATININE FOR GFR 1.49 MG/DL (0.70-1.30); GLOMERULAR FILTRATION RATE 53.6 (>60); GLUCOSE, FASTING 88 MG/DL (70-100); MAGNESIUM LEVEL 1.8 MG/DL (1.8-2.4); POTASSIUM SERUM 4.1 MEQ/L (3.5-5.1); SODIUM LEVEL 124 MEQ/L (136-145); TOTAL PROTEIN 5.7 GM/DL (6.4-8.2)
[2018-02-08 05:42] LABS: HEMOGLOBIN 10.5 g/dl (13.5-17.5); PLATELET COUNT, AUTOMATED 68 10^3/uL (150-450); POS COUNT POS FLAG; POSITIVE DIFF POS FLAG; POSITIVE MORPH POS FLAG; WHITE BLOOD COUNT 1.3 10^3/uL (4.0-10.0)
[2018-02-08 05:43] LABS: ADD MANUAL DIFFER YES; DIFF SLIDE NUMBER 28
[2018-02-08 05:44] LABS: IMMATURE PLATELET FRACTION % 3.3 % (0.0-10.9)
[2018-02-08] MEDS: SLF 3 ML SYR IV ×3 (05:51→21:02)
[2018-02-08 05:52] LABS: LYMPHOCYTES 15 % (16-52); MONOCYTES 1 % (0-8); NEUTROPHILS 84 % (35-75); PLATELET ESTIMATE DECREASED (NORMAL)
[2018-02-08 06:32] LABS: APPEARANCE, URINE CLEAR (CLEAR); BACTERIA, URINE AUTO NEGATIVE (NEGATIVE); BILIRUBIN, URINE AUTO NEGATIVE (NEGATIVE); BLOOD, URINE BLOOD NEGATIVE (NEGATIVE); COLOR, URINE YELLOW (YELLOW); GLUCOSE, URINE (UA) AUTO NEGATIVE (NEGATIVE); KETONE, URINE AUTO NEGATIVE (NEGATIVE); LEUKOCYTE ESTERASE, URINE AUTO NEGATIVE (NEGATIVE); MUCUS, URINE SMALL (NEGATIVE); NITRITE, URINE AUTO NEGATIVE (NEGATIVE); PROTEIN, URINE AUTO NEGATIVE (NEGATIVE); RBC, URINE AUTO 1 /HPF (0-3); SPECIFIC GRAVITY URINE AUTO 1.015 (1.002-1.035); SQUAMOUS EPITHELIAL CELL UR AU 0 /HPF (0-6); UROBILINOGEN, URINE AUTO 0.2 mg/dL (0.0-2.0); WBC, URINE AUTO 1 /HPF (0-3)
[2018-02-08 06:57] LABS: CREATININE,RANDOM URINE 98.2 MG/DL; SODIUM,RANDOM URINE 60 MEQ/L
[2018-02-08 07:20] LABS: OSMOLALITY URINE 412 MOSM/KG (500-800)
[2018-02-08] MEDS: VITAMIN B COMPLEX/VIT C CAP PO (08:29)
[2018-02-08] MEDS: PANTOPRAZOLE 40MG INJ (PROTONIX) (C9113) IV (08:29)
[2018-02-08] MEDS: LACTOBACILLUS ACIDOPHILUS CAP (BACID) PO (08:29)
[2018-02-08 10:19] LABS: CPK CREATINE PHOSPHOKINASE 41 U/L (39-308)
[2018-02-08] MEDS: VORICONAZOLE 200MG TABLET (VFEND) PO ×2 (10:22→21:00)
[2018-02-08] MEDS: SODIUM CHLORIDE 1 GM TAB PO ×2 (12:31→21:00)
[2018-02-08] MEDS: PRIMAQUINE PHOSPHATE 26.3 MG PO (15:51)
[2018-02-08] MEDS: CLINDAMYCIN 600 MG in APPROPRIATE DILUENT 1 EA IV (16:09)
[2018-02-09] MEDS: NS 1,000 ML IV ×3 (03:30→19:30)
[2018-02-09] MEDS: SLF 3 ML SYR IV ×3 (05:13→21:19)
[2018-02-09 05:31] LABS: HEMATOCRIT 30.5 % (42.0-52.0); HEMOGLOBIN 10.2 g/dl (13.5-17.5); MEAN CORPUSCULAR HEMOGLOBIN 27.5 pg (27.0-33.0); MEAN CORPUSCULAR HGB CONC 33.4 g/dl (32.0-36.5); MEAN CORPUSCULAR VOLUME 82.2 fl (80.0-96.0); RED BLOOD COUNT 3.71 10^6/uL (4.30-6.10); RED CELL DISTRIBUTION WIDTH 13.6 % (11.5-14.5)
[2018-02-09 05:38] LABS: PLATELET COUNT, AUTOMATED 66 10^3/uL (150-450); POS COUNT POS FLAG; POSITIVE DIFF POS FLAG; POSITIVE MORPH POS FLAG; WHITE BLOOD COUNT 1.4 10^3/uL (4.0-10.0)
[2018-02-09 05:39] LABS: ADD MANUAL DIFFER YES; DIFF SLIDE NUMBER 23; IMMATURE PLATELET FRACTION % 5.1 % (0.0-10.9)
[2018-02-09 05:59] LABS: LYMPHOCYTES 24 % (16-52); METAMYELOCYTES 1 % (0-0); MONOCYTES 2 % (0-8); NEUTROPHILS 73 % (35-75); PLATELET ESTIMATE MARKED DECREASE (NORMAL)
[2018-02-09 06:00] LABS: ALBUMIN 1.9 GM/DL (3.2-5.2); ALBUMIN/GLOBULIN RATIO 0.58 (1.00-1.93); ALKALINE PHOSPHATASE 43 U/L (45-117); ALT/SGPT 59 U/L (12-78); ANION GAP 8 MEQ/L (8-16); AST/SGOT 68 U/L (7-37); BILIRUBIN,TOTAL 0.2 MG/DL (0.2-1.0); BLOOD UREA NITROGEN 15 MG/DL (7-18); CALCIUM LEVEL 7.3 MG/DL (8.5-10.1); CARBON DIOXIDE LEVEL 24 MEQ/L (21-32); CHLORIDE LEVEL 99 MEQ/L (98-107); CREATININE FOR GFR 1.18 MG/DL (0.70-1.30); GLOMERULAR FILTRATION RATE > 60.0 (>60); GLUCOSE, FASTING 78 MG/DL (70-100); MAGNESIUM LEVEL 1.8 MG/DL (1.8-2.4); SODIUM LEVEL 131 MEQ/L (136-145); TOTAL PROTEIN 5.2 GM/DL (6.4-8.2)
[2018-02-09 08:07] LABS: REASON FOR REVIEW PLATELET MORPHOLOGY; SLIDE REVIEW Report; SOURCE PERIPHERAL SMEAR
[2018-02-09 08:47] LABS: INR 1.05; PROTHROMBIN TIME 13.9 SECONDS (12.1-14.4)
[2018-02-09 08:55] LABS: FIBRINOGEN 389 MG/DL (221-452)
[2018-02-09 08:57] LABS: D-DIMER QUANT 2952.55 ng/ml (<500)
[2018-02-09] MEDS: PANTOPRAZOLE 40MG INJ (PROTONIX) (C9113) IV (09:50)
[2018-02-09] MEDS: SODIUM CHLORIDE 1 GM TAB PO ×2 (09:51→20:13)
[2018-02-09] MEDS: VORICONAZOLE 200MG TABLET (VFEND) PO ×2 (09:51→20:14)
[2018-02-09] MEDS: VITAMIN B COMPLEX/VIT C CAP PO (09:51)
[2018-02-09] MEDS: PRIMAQUINE PHOSPHATE 26.3 MG PO (09:51)
[2018-02-09] MEDS: LACTOBACILLUS ACIDOPHILUS CAP (BACID) PO (09:51)
[2018-02-09] MEDS: CLINDAMYCIN 600 MG in APPROPRIATE DILUENT 1 EA IV ×3 (09:52→16:56)
[2018-02-09] MEDS: BIKTARVY PO (18:53)
[2018-02-09] MEDS: GOLYTELY SOLN 4000 ML BTL PO (19:00)
[2018-02-09] MEDS: ATOVAQUONE SUSP 750MG/5ML 210 ML BTL PO (21:00)
[2018-02-10] MEDS: NS 1,000 ML IV ×3 (02:34→20:58)
[2018-02-10] MEDS: SLF 3 ML SYR IV ×3 (05:03→22:00)
[2018-02-10 05:39] LABS: EOS % 1.4 % (0.0-3.0); HEMATOCRIT 28.7 % (42.0-52.0); HEMOGLOBIN 9.7 g/dl (13.5-17.5); IMMATURE GRANULOCYTE % 1.4 % (0-3.0); LYMPH % 16.7 % (24.0-44.0); MEAN CORPUSCULAR HEMOGLOBIN 27.2 pg (27.0-33.0); MEAN CORPUSCULAR HGB CONC 33.8 g/dl (32.0-36.5); MEAN CORPUSCULAR VOLUME 80.4 fl (80.0-96.0); MONO # 0.1 10^3/uL (0.0-0.8); MONO % 4.2 % (0.0-5.0); NEUTROPHILS # 1.1 10^3/uL (1.8-7.7); NEUTROPHILS % 76.3 % (36.0-66.0); RED BLOOD COUNT 3.57 10^6/uL (4.30-6.10); RED CELL DISTRIBUTION WIDTH 13.5 % (11.5-14.5)
[2018-02-10 05:54] LABS: LYMPH # 0.2 10^3/uL (1.5-4.5); PLATELET COUNT, AUTOMATED 63 10^3/uL (150-450); POS COUNT POS FLAG; POSITIVE DIFF POS FLAG; WHITE BLOOD COUNT 1.4 10^3/uL (4.0-10.0)
[2018-02-10 05:55] LABS: IMMATURE PLATELET FRACTION % 5.6 % (0.0-10.9)
[2018-02-10 06:17] LABS: ALBUMIN 1.9 GM/DL (3.2-5.2); ALBUMIN/GLOBULIN RATIO 0.61 (1.00-1.93); ALKALINE PHOSPHATASE 50 U/L (45-117); ALT/SGPT 55 U/L (12-78); ANION GAP 9 MEQ/L (8-16); AST/SGOT 47 U/L (7-37); BILIRUBIN,TOTAL 0.3 MG/DL (0.2-1.0); BLOOD UREA NITROGEN 11 MG/DL (7-18); CALCIUM LEVEL 7.8 MG/DL (8.5-10.1); CARBON DIOXIDE LEVEL 24 MEQ/L (21-32); CHLORIDE LEVEL 98 MEQ/L (98-107); CREATININE FOR GFR 0.98 MG/DL (0.70-1.30); GLOMERULAR FILTRATION RATE > 60.0 (>60); GLUCOSE, FASTING 107 MG/DL (70-100); MAGNESIUM LEVEL 1.7 MG/DL (1.8-2.4); POTASSIUM SERUM 3.4 MEQ/L (3.5-5.1); SODIUM LEVEL 131 MEQ/L (136-145)
[2018-02-10] MEDS: PANTOPRAZOLE 40MG INJ (PROTONIX) (C9113) IV (08:22)
[2018-02-10] MEDS: KCL 10MEQ/100ML SWI (KRUN) 10 MEQ in APPROPRIATE DILUENT 1 EA IV ×3 (08:22→10:00)
[2018-02-10] MEDS: MAG SULF 1GM/100ML (MAG RUN) 1 GM in APPROPRIATE DILUENT 1 EA IV ×2 (09:00→10:45)
[2018-02-10] MEDS: SODIUM CHLORIDE 1 GM TAB PO ×2 (10:43→20:19)
[2018-02-10] MEDS: ATOVAQUONE SUSP 750MG/5ML 210 ML BTL PO ×2 (10:43→20:17)
[2018-02-10] MEDS: VORICONAZOLE 200MG TABLET (VFEND) PO ×2 (10:44→20:19)
[2018-02-10] MEDS: VITAMIN B COMPLEX/VIT C CAP PO (10:44)
[2018-02-10] MEDS: LACTOBACILLUS ACIDOPHILUS CAP (BACID) PO (10:44)
[2018-02-10] MEDS: BIKTARVY PO (10:44)
[2018-02-10] MEDS: predniSONE 20 MG TAB PO (10:44)
[2018-02-10] MEDS: POTASSIUM CHLORIDE 10 MEQ SR TABLET PO (10:55)
[2018-02-10] MEDS ORDERED: PROPOFOL 200 MG/20 ML VIAL As Ordered (16:15)
[2018-02-10] MEDS ORDERED: LIDOCAINE 2% INJ 100 MG/5 ML SDV (FOR ANES.) As Ordered (16:15)
[2018-02-10] MEDS ORDERED: PHENYLephrine HCL 500 MCG/5 ML (100MCG/ML) SYRINGE (J2370) As Ordered (17:15)
[2018-02-10] MEDS ORDERED: ePHEDrine SULFATE 25 MG/5 ML(5MG/ML) SYRINGE As Ordered (17:15)
[2018-02-10] MEDS: AZITHROMYCIN SUSP 200MG/5ML 30ML BOTTLE (FOR INPATIENT ORDERS) PO (22:58)
[2018-02-11] MEDS: SLF 3 ML SYR IV ×3 (05:13→20:46)
[2018-02-11 06:12] LABS: EOS % 0.5 % (0.0-3.0); HEMATOCRIT 30.9 % (42.0-52.0); HEMOGLOBIN 10.4 g/dl (13.5-17.5); IMMATURE GRANULOCYTE % 1.1 % (0-3.0); LYMPH # 0.3 10^3/uL (1.5-4.5); LYMPH % 13.4 % (24.0-44.0); MEAN CORPUSCULAR HEMOGLOBIN 27.5 pg (27.0-33.0); MEAN CORPUSCULAR HGB CONC 33.7 g/dl (32.0-36.5); MEAN CORPUSCULAR VOLUME 81.7 fl (80.0-96.0); MONO # 0.1 10^3/uL (0.0-0.8); MONO % 5.4 % (0.0-5.0); NEUTROPHILS # 1.5 10^3/uL (1.8-7.7); NEUTROPHILS % 79.6 % (36.0-66.0); RED BLOOD COUNT 3.78 10^6/uL (4.30-6.10); RED CELL DISTRIBUTION WIDTH 13.8 % (11.5-14.5)
[2018-02-11 06:25] LABS: PLATELET COUNT, AUTOMATED 74 10^3/uL (150-450); POS COUNT POS FLAG; POSITIVE DIFF POS FLAG; WHITE BLOOD COUNT 1.9 10^3/uL (4.0-10.0)
[2018-02-11 06:26] LABS: IMMATURE PLATELET FRACTION % 4.4 % (0.0-10.9)
[2018-02-11 06:42] LABS: ALBUMIN/GLOBULIN RATIO 0.49 (1.00-1.93); ALKALINE PHOSPHATASE 87 U/L (45-117); ALT/SGPT 72 U/L (12-78); ANION GAP 7 MEQ/L (8-16); AST/SGOT 60 U/L (7-37); BILIRUBIN,TOTAL 0.3 MG/DL (0.2-1.0); BLOOD UREA NITROGEN 11 MG/DL (7-18); CALCIUM LEVEL 8.4 MG/DL (8.5-10.1); CARBON DIOXIDE LEVEL 23 MEQ/L (21-32); CHLORIDE LEVEL 106 MEQ/L (98-107); CREATININE FOR GFR 0.99 MG/DL (0.70-1.30); GLOMERULAR FILTRATION RATE > 60.0 (>60); GLUCOSE, FASTING 110 MG/DL (70-100); MAGNESIUM LEVEL 2.1 MG/DL (1.8-2.4); POTASSIUM SERUM 3.7 MEQ/L (3.5-5.1); SODIUM LEVEL 136 MEQ/L (136-145); TOTAL PROTEIN 6.1 GM/DL (6.4-8.2)
[2018-02-11] MEDS: NS 1,000 ML IV ×2 (06:58→16:58)
[2018-02-11] MEDS: BIKTARVY PO (09:00)
[2018-02-11] MEDS: VORICONAZOLE 200MG TABLET (VFEND) PO ×2 (09:25→20:46)
[2018-02-11] MEDS: PANTOPRAZOLE 40MG INJ (PROTONIX) (C9113) IV (09:26)
[2018-02-11] MEDS: VITAMIN B COMPLEX/VIT C CAP PO (09:26)
[2018-02-11] MEDS: predniSONE 20 MG TAB PO (09:26)
[2018-02-11] MEDS: LACTOBACILLUS ACIDOPHILUS CAP (BACID) PO (09:26)
[2018-02-11] MEDS: ATOVAQUONE SUSP 750MG/5ML 210 ML BTL PO ×2 (09:26→20:46)
[2018-02-11] MEDS: SODIUM CHLORIDE 1 GM TAB PO ×2 (09:26→20:46)
[2018-02-12] MEDS: NS 1,000 ML IV (02:58)
[2018-02-12] MEDS: SLF 3 ML SYR IV ×3 (06:00→21:42)
[2018-02-12 06:53] LABS: EOS % 0.6 % (0.0-3.0); HEMATOCRIT 28.2 % (42.0-52.0); HEMOGLOBIN 9.4 g/dl (13.5-17.5); IMMATURE GRANULOCYTE % 1.2 % (0-3.0); LYMPH # 0.3 10^3/uL (1.5-4.5); LYMPH % 15.9 % (24.0-44.0); MEAN CORPUSCULAR HGB CONC 33.3 g/dl (32.0-36.5); MONO # 0.1 10^3/uL (0.0-0.8); MONO % 6.1 % (0.0-5.0); NEUTROPHILS # 1.3 10^3/uL (1.8-7.7); NEUTROPHILS % 76.2 % (36.0-66.0); RED BLOOD COUNT 3.48 10^6/uL (4.30-6.10); RED CELL DISTRIBUTION WIDTH 13.8 % (11.5-14.5)
[2018-02-12 06:54] LABS: PLATELET COUNT, AUTOMATED 81 10^3/uL (150-450); POS COUNT POS FLAG; POSITIVE DIFF POS FLAG; WHITE BLOOD COUNT 1.6 10^3/uL (4.0-10.0)
[2018-02-12 06:55] LABS: IMMATURE PLATELET FRACTION % 3.6 % (0.0-10.9)
[2018-02-12 07:25] LABS: ALBUMIN/GLOBULIN RATIO 0.54 (1.00-1.93); ALKALINE PHOSPHATASE 73 U/L (45-117); ALT/SGPT 58 U/L (12-78); ANION GAP 8 MEQ/L (8-16); AST/SGOT 29 U/L (7-37); BILIRUBIN,TOTAL 0.4 MG/DL (0.2-1.0); BLOOD UREA NITROGEN 12 MG/DL (7-18); C REACTIVE PROTEIN QUANTITATIV 0.74 MG/DL (0.00-0.30); CALCIUM LEVEL 8.2 MG/DL (8.5-10.1); CARBON DIOXIDE LEVEL 23 MEQ/L (21-32); CHLORIDE LEVEL 107 MEQ/L (98-107); CREATININE FOR GFR 0.76 MG/DL (0.70-1.30); GLOMERULAR FILTRATION RATE > 60.0 (>60); GLUCOSE, FASTING 89 MG/DL (70-100); MAGNESIUM LEVEL 1.7 MG/DL (1.8-2.4); POTASSIUM SERUM 3.4 MEQ/L (3.5-5.1); SODIUM LEVEL 138 MEQ/L (136-145); TOTAL PROTEIN 5.7 GM/DL (6.4-8.2)
[2018-02-12] MEDS: POTASSIUM CHLORIDE 10 MEQ SR TABLET PO (07:59)
[2018-02-12] MEDS: predniSONE 20 MG TAB PO (08:00)
[2018-02-12] MEDS: MAGNESIUM OXIDE 400 MG TAB (MAG-OX) PO ×2 (08:00→21:41)
[2018-02-12] MEDS: LACTOBACILLUS ACIDOPHILUS CAP (BACID) PO (08:00)
[2018-02-12] MEDS: ATOVAQUONE SUSP 750MG/5ML 210 ML BTL PO ×2 (08:01→21:42)
[2018-02-12] MEDS: BIKTARVY PO (08:01)
[2018-02-12] MEDS: VORICONAZOLE 200MG TABLET (VFEND) PO ×2 (08:02→21:41)
[2018-02-12] MEDS: VITAMIN B COMPLEX/VIT C CAP PO (08:02)
[2018-02-12] MEDS: SODIUM CHLORIDE 1 GM TAB PO ×2 (08:02→21:41)
[2018-02-12] MEDS: PANTOPRAZOLE 40MG INJ (PROTONIX) (C9113) IV (08:18)
[2018-02-12 14:20] LABS: G6PD2 3.59 x10E6/uL (4.14-5.80); G6PD3 243 (146-376); HISTOPLASMA GAL'MANNAN AG SER <0.5 (<0.5 ng/mL); HISTOPLASMA GAL'MANNAN AG UR <0.5 (<0.5 ng/mL)
[2018-02-13] MEDS: SLF 3 ML SYR IV ×3 (06:00→21:04)
[2018-02-13 06:59] LABS: HEMATOCRIT 29.1 % (42.0-52.0); HEMOGLOBIN 9.6 g/dl (13.5-17.5); MEAN CORPUSCULAR VOLUME 81.7 fl (80.0-96.0); PLATELET COUNT, AUTOMATED 102 10^3/uL (150-450); RED BLOOD COUNT 3.56 10^6/uL (4.30-6.10); RED CELL DISTRIBUTION WIDTH 13.8 % (11.5-14.5); WHITE BLOOD COUNT 2.3 10^3/uL (4.0-10.0)
[2018-02-13 07:33] LABS: ANION GAP 8 MEQ/L (8-16); BLOOD UREA NITROGEN 12 MG/DL (7-18); C REACTIVE PROTEIN QUANTITATIV 0.48 MG/DL (0.00-0.30); CALCIUM LEVEL 8.2 MG/DL (8.5-10.1); CARBON DIOXIDE LEVEL 25 MEQ/L (21-32); CHLORIDE LEVEL 109 MEQ/L (98-107); GLOMERULAR FILTRATION RATE > 60.0 (>60); GLUCOSE, FASTING 90 MG/DL (70-100); MAGNESIUM LEVEL 1.9 MG/DL (1.8-2.4); POTASSIUM SERUM 3.8 MEQ/L (3.5-5.1); SODIUM LEVEL 142 MEQ/L (136-145)
[2018-02-13] MEDS: BIKTARVY PO (09:00)
[2018-02-13] MEDS: VITAMIN B COMPLEX/VIT C CAP PO (09:41)
[2018-02-13] MEDS: LACTOBACILLUS ACIDOPHILUS CAP (BACID) PO (09:41)
[2018-02-13] MEDS: PANTOPRAZOLE 40MG INJ (PROTONIX) (C9113) IV (09:41)
[2018-02-13] MEDS: SODIUM CHLORIDE 1 GM TAB PO ×2 (09:41→21:04)
[2018-02-13] MEDS: predniSONE 20 MG TAB PO (09:41)
[2018-02-13] MEDS: VORICONAZOLE 200MG TABLET (VFEND) PO ×2 (09:41→21:04)
[2018-02-13] MEDS: ATOVAQUONE SUSP 750MG/5ML 210 ML BTL PO ×2 (09:42→21:04)
[2018-02-13] MEDS: ValGANciclovir HYDROCHLORIDE 450MG TABLET PO (17:44)
[2018-02-14] MEDS: SLF 3 ML SYR IV ×3 (05:20→21:04)
[2018-02-14 06:47] LABS: HEMATOCRIT 31.1 % (42.0-52.0); HEMOGLOBIN 10.1 g/dl (13.5-17.5); MEAN CORPUSCULAR HEMOGLOBIN 27.3 pg (27.0-33.0); MEAN CORPUSCULAR HGB CONC 32.5 g/dl (32.0-36.5); MEAN CORPUSCULAR VOLUME 84.1 fl (80.0-96.0); PLATELET COUNT, AUTOMATED 126 10^3/uL (150-450)
[2018-02-14 06:59] LABS: ANION GAP 9 MEQ/L (8-16); BLOOD UREA NITROGEN 12 MG/DL (7-18); CALCIUM LEVEL 8.2 MG/DL (8.5-10.1); CARBON DIOXIDE LEVEL 26 MEQ/L (21-32); CHLORIDE LEVEL 105 MEQ/L (98-107); CREATININE FOR GFR 0.84 MG/DL (0.70-1.30); GLOMERULAR FILTRATION RATE > 60.0 (>60); GLUCOSE, FASTING 98 MG/DL (70-100); MAGNESIUM LEVEL 1.9 MG/DL (1.8-2.4); POTASSIUM SERUM 3.7 MEQ/L (3.5-5.1); SODIUM LEVEL 140 MEQ/L (136-145)
[2018-02-14] MEDS ORDERED: ISOVUE-370 76% 100ML VIAL (Q9967) As Ordered (08:02)
[2018-02-14] MEDS: predniSONE 20 MG TAB PO (08:32)
[2018-02-14] MEDS: PANTOPRAZOLE 40MG INJ (PROTONIX) (C9113) IV (08:32)
[2018-02-14] MEDS: ATOVAQUONE SUSP 750MG/5ML 210 ML BTL PO ×2 (08:32→20:01)
[2018-02-14] MEDS: BIKTARVY PO (08:32)
[2018-02-14] MEDS: VORICONAZOLE 200MG TABLET (VFEND) PO ×2 (08:33→20:01)
[2018-02-14] MEDS: LACTOBACILLUS ACIDOPHILUS CAP (BACID) PO (08:33)
[2018-02-14] MEDS: SODIUM CHLORIDE 1 GM TAB PO ×2 (08:33→20:01)
[2018-02-14] MEDS: VITAMIN B COMPLEX/VIT C CAP PO (08:33)
[2018-02-14] MEDS: ValGANciclovir HYDROCHLORIDE 450MG TABLET PO ×2 (08:34→18:24)
[2018-02-15] MEDS: SLF 3 ML SYR IV ×3 (06:10→20:23)
[2018-02-15 07:08] LABS: ANION GAP 6 MEQ/L (8-16); BLOOD UREA NITROGEN 15 MG/DL (7-18); CALCIUM LEVEL 8.3 MG/DL (8.5-10.1); CARBON DIOXIDE LEVEL 27 MEQ/L (21-32); CHLORIDE LEVEL 106 MEQ/L (98-107); CREATININE FOR GFR 0.79 MG/DL (0.70-1.30); GLOMERULAR FILTRATION RATE > 60.0 (>60); GLUCOSE, FASTING 94 MG/DL (70-100); MAGNESIUM LEVEL 1.8 MG/DL (1.8-2.4); POTASSIUM SERUM 3.6 MEQ/L (3.5-5.1); SODIUM LEVEL 139 MEQ/L (136-145)
[2018-02-15 07:21] LABS: HEMATOCRIT 31.7 % (42.0-52.0); HEMOGLOBIN 10.2 g/dl (13.5-17.5); MEAN CORPUSCULAR HEMOGLOBIN 27.2 pg (27.0-33.0); MEAN CORPUSCULAR HGB CONC 32.2 g/dl (32.0-36.5); MEAN CORPUSCULAR VOLUME 84.5 fl (80.0-96.0); PLATELET COUNT, AUTOMATED 152 10^3/uL (150-450); RED BLOOD COUNT 3.75 10^6/uL (4.30-6.10); RED CELL DISTRIBUTION WIDTH 14.7 % (11.5-14.5); WHITE BLOOD COUNT 3.6 10^3/uL (4.0-10.0)
[2018-02-15] MEDS: PANTOPRAZOLE 40MG INJ (PROTONIX) (C9113) IV (08:48)
[2018-02-15] MEDS: ATOVAQUONE SUSP 750MG/5ML 210 ML BTL PO ×2 (08:48→20:22)
[2018-02-15] MEDS: LACTOBACILLUS ACIDOPHILUS CAP (BACID) PO (08:48)
[2018-02-15] MEDS: SODIUM CHLORIDE 1 GM TAB PO ×2 (08:48→20:22)
[2018-02-15] MEDS: VITAMIN B COMPLEX/VIT C CAP PO (08:48)
[2018-02-15] MEDS: VORICONAZOLE 200MG TABLET (VFEND) PO ×2 (08:49→20:22)
[2018-02-15] MEDS: predniSONE 20 MG TAB PO (08:49)
[2018-02-15] MEDS: ValGANciclovir HYDROCHLORIDE 450MG TABLET PO ×2 (08:49→18:23)
[2018-02-15] MEDS: BIKTARVY PO (08:49)
[2018-02-15] MEDS: traMADol 50 MG TAB PO (09:04)
[2018-02-16] MEDS: SLF 3 ML SYR IV ×3 (05:18→21:02)
[2018-02-16 06:12] LABS: HEMATOCRIT 33.2 % (42.0-52.0); HEMOGLOBIN 10.9 g/dl (13.5-17.5); MEAN CORPUSCULAR HEMOGLOBIN 27.5 pg (27.0-33.0); MEAN CORPUSCULAR HGB CONC 32.8 g/dl (32.0-36.5); MEAN CORPUSCULAR VOLUME 83.8 fl (80.0-96.0); PLATELET COUNT, AUTOMATED 215 10^3/uL (150-450); RED BLOOD COUNT 3.96 10^6/uL (4.30-6.10); RED CELL DISTRIBUTION WIDTH 15.3 % (11.5-14.5); WHITE BLOOD COUNT 3.6 10^3/uL (4.0-10.0)
[2018-02-16 06:29] LABS: ANION GAP 8 MEQ/L (8-16); BLOOD UREA NITROGEN 17 MG/DL (7-18); CALCIUM LEVEL 8.8 MG/DL (8.5-10.1); CARBON DIOXIDE LEVEL 27 MEQ/L (21-32); CHLORIDE LEVEL 106 MEQ/L (98-107); CREATININE FOR GFR 0.95 MG/DL (0.70-1.30); GLOMERULAR FILTRATION RATE > 60.0 (>60); GLUCOSE, FASTING 86 MG/DL (70-100); MAGNESIUM LEVEL 1.8 MG/DL (1.8-2.4); POTASSIUM SERUM 3.9 MEQ/L (3.5-5.1); SODIUM LEVEL 141 MEQ/L (136-145)
[2018-02-16] MEDS: ValGANciclovir HYDROCHLORIDE 450MG TABLET PO ×2 (08:00→17:40)
[2018-02-16] MEDS: ATOVAQUONE SUSP 750MG/5ML 210 ML BTL PO ×2 (08:55→21:01)
[2018-02-16] MEDS: SODIUM CHLORIDE 1 GM TAB PO ×2 (08:56→21:01)
[2018-02-16] MEDS: VORICONAZOLE 200MG TABLET (VFEND) PO (08:56)
[2018-02-16] MEDS: predniSONE 20 MG TAB PO (08:56)
[2018-02-16] MEDS: PANTOPRAZOLE 40MG INJ (PROTONIX) (C9113) IV (08:56)
[2018-02-16] MEDS: VITAMIN B COMPLEX/VIT C CAP PO (08:56)
[2018-02-16] MEDS: LACTOBACILLUS ACIDOPHILUS CAP (BACID) PO (08:56)
[2018-02-16] MEDS: BIKTARVY PO (08:58)
[2018-02-16] MEDS: traMADol 50 MG TAB PO (17:37)
[2018-02-17] MEDS: SLF 3 ML SYR IV ×3 (05:12→20:51)
[2018-02-17 06:09] LABS: HEMATOCRIT 30.2 % (42.0-52.0); HEMOGLOBIN 9.8 g/dl (13.5-17.5); MEAN CORPUSCULAR HEMOGLOBIN 27.7 pg (27.0-33.0); MEAN CORPUSCULAR HGB CONC 32.5 g/dl (32.0-36.5); MEAN CORPUSCULAR VOLUME 85.3 fl (80.0-96.0); PLATELET COUNT, AUTOMATED 179 10^3/uL (150-450); RED BLOOD COUNT 3.54 10^6/uL (4.30-6.10); RED CELL DISTRIBUTION WIDTH 15.9 % (11.5-14.5); WHITE BLOOD COUNT 2.6 10^3/uL (4.0-10.0)
[2018-02-17 06:33] LABS: ANION GAP 9 MEQ/L (8-16); BLOOD UREA NITROGEN 18 MG/DL (7-18); CARBON DIOXIDE LEVEL 26 MEQ/L (21-32); CHLORIDE LEVEL 107 MEQ/L (98-107); CREATININE FOR GFR 0.98 MG/DL (0.70-1.30); GLOMERULAR FILTRATION RATE > 60.0 (>60); GLUCOSE, FASTING 85 MG/DL (70-100); MAGNESIUM LEVEL 1.8 MG/DL (1.8-2.4); POTASSIUM SERUM 3.8 MEQ/L (3.5-5.1); SODIUM LEVEL 142 MEQ/L (136-145)
[2018-02-17] MEDS: predniSONE 20 MG TAB PO (08:46)
[2018-02-17] MEDS: VITAMIN B COMPLEX/VIT C CAP PO (08:46)
[2018-02-17] MEDS: SODIUM CHLORIDE 1 GM TAB PO ×2 (08:46→20:50)
[2018-02-17] MEDS: LACTOBACILLUS ACIDOPHILUS CAP (BACID) PO (08:46)
[2018-02-17] MEDS: ValGANciclovir HYDROCHLORIDE 450MG TABLET PO ×2 (08:47→18:00)
[2018-02-17] MEDS: ATOVAQUONE SUSP 750MG/5ML 210 ML BTL PO ×2 (08:48→20:50)
[2018-02-17] MEDS: BIKTARVY PO (08:49)
[2018-02-17] MEDS: traMADol 50 MG TAB PO ×2 (11:43→20:50)
[2018-02-17] MEDS: ACETAMINOPHEN TAB 650MG DOSE (2X325MG) PO (16:30)
[2018-02-17] MEDS: AZITHROMYCIN SUSP 200MG/5ML 30ML BOTTLE (FOR INPATIENT ORDERS) PO (20:50)
[2018-02-18] MEDS: SLF 3 ML SYR IV (05:58)
[2018-02-18 06:55] LABS: HEMATOCRIT 34.3 % (42.0-52.0); MEAN CORPUSCULAR HEMOGLOBIN 28.1 pg (27.0-33.0); MEAN CORPUSCULAR HGB CONC 32.1 g/dl (32.0-36.5); MEAN CORPUSCULAR VOLUME 87.7 fl (80.0-96.0); PLATELET COUNT, AUTOMATED 212 10^3/uL (150-450); RED BLOOD COUNT 3.91 10^6/uL (4.30-6.10); RED CELL DISTRIBUTION WIDTH 16.6 % (11.5-14.5); WHITE BLOOD COUNT 2.8 10^3/uL (4.0-10.0)
[2018-02-18 07:11] LABS: ANION GAP 9 MEQ/L (8-16); BLOOD UREA NITROGEN 17 MG/DL (7-18); CALCIUM LEVEL 8.6 MG/DL (8.5-10.1); CARBON DIOXIDE LEVEL 23 MEQ/L (21-32); CHLORIDE LEVEL 108 MEQ/L (98-107); CREATININE FOR GFR 0.87 MG/DL (0.70-1.30); GLOMERULAR FILTRATION RATE > 60.0 (>60); GLUCOSE, FASTING 85 MG/DL (70-100); MAGNESIUM LEVEL 1.9 MG/DL (1.8-2.4); POTASSIUM SERUM 3.5 MEQ/L (3.5-5.1); SODIUM LEVEL 140 MEQ/L (136-145)
[2018-02-18] MEDS: BIKTARVY PO (09:00)
[2018-02-18] MEDS: ValGANciclovir HYDROCHLORIDE 450MG TABLET PO (10:58)
[2018-02-18] MEDS: VITAMIN B COMPLEX/VIT C CAP PO (10:58)
[2018-02-18] MEDS: SODIUM CHLORIDE 1 GM TAB PO (10:58)
[2018-02-18] MEDS: LACTOBACILLUS ACIDOPHILUS CAP (BACID) PO (10:59)
[2018-02-18] MEDS: predniSONE 20 MG TAB PO (11:00)
[2018-02-18] MEDS: ATOVAQUONE SUSP 750MG/5ML 210 ML BTL PO (11:00)
== END 2018-02-18 12:40 | disposition home or self-care (01) | DRG 974 ==
LOC: M MSPAV 01-30 01:35 → M ED 16:27 → M PCU 01-30 05:36 → M MS4PR 02-12 22:28 → M ED INP 23:18
PROC: 0B9C8ZX Drainage of Right Upper Lung Lobe, Via Natural or Artificial Opening Endoscopic, Diagnostic (ICD-10-PCS; principal; 2018-01-29 09:45)
PROC: 0B9F8ZX Drainage of Right Lower Lung Lobe, Via Natural or Artificial Opening Endoscopic, Diagnostic (ICD-10-PCS; 2018-01-29 09:45)
PROC: 0HBEXZX Excision of Left Lower Arm Skin, External Approach, Diagnostic (ICD-10-PCS; 2018-01-29 10:34)
PROC: 0DBP8ZX Excision of Rectum, Via Natural or Artificial Opening Endoscopic, Diagnostic (ICD-10-PCS; 2018-01-29 10:34)
DX: B59 Pneumocystosis (principal); B20 Human immunodeficiency virus [HIV] disease; J96.91 Respiratory failure, unspecified with hypoxia; C46.0 Kaposi's sarcoma of skin; J98.11 Atelectasis; K63.3 Ulcer of intestine; B25.8 Other cytomegaloviral diseases; A08.39 Other viral enteritis; E87.1 Hypo-osmolality and hyponatremia; N17.9 Acute kidney failure, unspecified; N18.2 Chronic kidney disease, stage 2 (mild); I25.10 Atherosclerotic heart disease of native coronary artery without angina pectoris; I25.2 Old myocardial infarction; F41.9 Anxiety disorder, unspecified; R11.2 Nausea with vomiting, unspecified; T37.0X5A Adverse effect of sulfonamides, initial encounter; R91.1 Solitary pulmonary nodule; F32.9 Major depressive disorder, single episode, unspecified; Z95.5 Presence of coronary angioplasty implant and graft; F17.210 Nicotine dependence, cigarettes, uncomplicated; Z79.899 Other long term (current) drug therapy; Z88.8 Allergy status to other drugs, medicaments and biological substances; Z91.14 Patient's other noncompliance with medication regimen

== ENCOUNTER → 2018-01-27 | Outpatient (REF) | payer OTHER ==
[2018-01-27 17:40] LABS: BASO % 0.3 % (0.0-1.0); EOS # 0.2 10^3/uL (0.0-0.50); EOS % 3.3 % (0.0-3.0); HEMATOCRIT 39.3 % (42.0-52.0); HEMOGLOBIN 12.9 g/dl (13.5-17.5); IMMATURE GRANULOCYTE % 0.5 % (0-3.0); LYMPH # 1.3 10^3/uL (1.5-4.5); LYMPH % 21.5 % (24.0-44.0); MEAN CORPUSCULAR HEMOGLOBIN 27.6 pg (27.0-33.0); MEAN CORPUSCULAR HGB CONC 32.8 g/dl (32.0-36.5); MEAN CORPUSCULAR VOLUME 84.2 fl (80.0-96.0); MONO # 0.4 10^3/uL (0.0-0.8); MONO % 6.2 % (0.0-5.0); NEUTROPHILS % 68.2 % (36.0-66.0); PLATELET COUNT, AUTOMATED 230 10^3/uL (150-450); RED BLOOD COUNT 4.67 10^6/uL (4.30-6.10); RED CELL DISTRIBUTION WIDTH 13.5 % (11.5-14.5); WHITE BLOOD COUNT 5.8 10^3/uL (4.0-10.0)
[2018-01-27 17:44] LABS: ALBUMIN/GLOBULIN RATIO 0.63 (1.00-1.93); ALKALINE PHOSPHATASE 52 U/L (45-117); ALT/SGPT 18 U/L (12-78); ANION GAP 10 MEQ/L (8-16); AST/SGOT 27 U/L (7-37); BILIRUBIN,TOTAL 0.5 MG/DL (0.2-1.0); BLOOD UREA NITROGEN 18 MG/DL (7-18); CALCIUM LEVEL 8.7 MG/DL (8.5-10.1); CARBON DIOXIDE LEVEL 27 MEQ/L (21-32); CHLORIDE LEVEL 101 MEQ/L (98-107); CREATININE FOR GFR 1.02 MG/DL (0.70-1.30); GLOMERULAR FILTRATION RATE > 60.0 (>60); GLUCOSE, FASTING 75 MG/DL (70-100); POTASSIUM SERUM 4.1 MEQ/L (3.5-5.1); SODIUM LEVEL 138 MEQ/L (136-145); THYROID STIMULATING HORMONE 0.831 uIU/ML (0.358-3.740); TOTAL PROTEIN 7.8 GM/DL (6.4-8.2); TROPONIN I < 0.02 NG/ML (< 0.10)
[2018-01-30 14:13] LABS: ABS Eosinophils 0.2 x10E3/uL (0.0-0.4); ABS Lymphs 1.3 x10E3/uL (0.7-3.1); ABS Monocytes 0.3 x10E3/uL (0.1-0.9); ABS Neutophils 3.9 x10E3/uL (1.4-7.0); Abs CD4 Helper 52 /uL (359-1519); Abs CD8 Suppres 689 /uL (109-897); CD4/CD8 Ratio 0.08 (0.92-3.72); Eosinophils 3 % (Not Estab.); HCT 40.2 % (37.5-51.0); HGB 12.9 g/dL (13.0-17.7); HIV-1 RNA PCR QUANT 2 LC550285 100200 copies/mL (.); HIV-1 RNA PCR QUANT 3 LC550285 5.001 (.); Immature Grans 0 % (Not Estab.); Lymphocytes 23 % (Not Estab.); MCH 27.9 pg (26.6-33.0); MCHC 32.1 g/dL (31.5-35.7); MCV 87 fL (79-97); Monocytes 5 % (Not Estab.); Neutrophils 69 % (Not Estab.); Platelets 232 x10E3/uL (150-379); QuantiFERON-TB Gold Plus Negative (Negative); RBC 4.63 x10E6/uL (4.14-5.80); RDW 15.1 % (12.3-15.4); WBC 5.6 x10E3/uL (3.4-10.8)
== END ==
LOC: M SFHCLERA 14:16
DX: R06.02 Shortness of breath (principal); R14.0 Abdominal distension (gaseous); R19.7 Diarrhea, unspecified; Z21 Asymptomatic human immunodeficiency virus [HIV] infection status; I25.10 Atherosclerotic heart disease of native coronary artery without angina pectoris; R07.89 Other chest pain

== ENCOUNTER → 2018-01-27 | Outpatient (CLI) | payer OTHER | LOC: M LRY 14:26 | DX: R06.2 Wheezing (principal); R14.0 Abdominal distension (gaseous); R91.8 Other nonspecific abnormal finding of lung field | CPT/HCPCS: 71046 ==

== ENCOUNTER → 2018-02-24 | Outpatient (REF) | payer OTHER ==
[2018-02-24 12:05] LABS: ALBUMIN 2.8 GM/DL (3.2-5.2); ALBUMIN/GLOBULIN RATIO 0.57 (1.00-1.93); ALKALINE PHOSPHATASE 85 U/L (45-117); ALT/SGPT 29 U/L (12-78); ANION GAP 8 MEQ/L (8-16); AST/SGOT 11 U/L (7-37); BILIRUBIN,TOTAL 0.4 MG/DL (0.2-1.0); BLOOD UREA NITROGEN 16 MG/DL (7-18); CALCIUM LEVEL 8.7 MG/DL (8.5-10.1); CARBON DIOXIDE LEVEL 24 MEQ/L (21-32); CHLORIDE LEVEL 111 MEQ/L (98-107); CHOLESTEROL LEVEL 177 MG/DL (<200); CHOLESTEROL RISK RATIO 4.214 (<5); CREATININE FOR GFR 1.07 MG/DL (0.70-1.30); GLOMERULAR FILTRATION RATE > 60.0 (>60); GLUCOSE, FASTING 83 MG/DL (70-100); HDL CHOLESTEROL 42 MG/DL (>40); LDL CHOLESTEROL 93 MG/DL (<100); NON-HDL-C 135 MG/DL; POTASSIUM SERUM 3.6 MEQ/L (3.5-5.1); SODIUM LEVEL 143 MEQ/L (136-145); TOTAL PROTEIN 7.7 GM/DL (6.4-8.2); TRIGLYCERIDES LEVEL 211 MG/DL (<150)
[2018-02-26 14:24] LABS: % CD8 Pos Lymph 56.2 % (12.0-35.5); %CD4 Pos Lymphs 6.1 % (30.8-58.5); ABS Lymphs 0.4 x10E3/uL (0.7-3.1); ABS Monocytes 0.1 x10E3/uL (0.1-0.9); Abs CD4 Helper 24 /uL (359-1519); Abs CD8 Suppres 225 /uL (109-897); CD4/CD8 Ratio 0.11 (0.92-3.72); Eosinophils 0 % (Not Estab.); HGB 11.9 g/dL (13.0-17.7); HIV-1 RNA PCR QUANT 2 LC550285 140 copies/mL (.); HIV-1 RNA PCR QUANT 3 LC550285 2.146 (.); Immature Grans 1 % (Not Estab.); Lymphocytes 11 % (Not Estab.); MCH 29.6 pg (26.6-33.0); MCV 87 fL (79-97); Monocytes 4 % (Not Estab.); Neutrophils 84 % (Not Estab.); Platelets 210 x10E3/uL (150-379); RBC 4.02 x10E6/uL (4.14-5.80); RDW 19.3 % (12.3-15.4); WBC 3.5 x10E3/uL (3.4-10.8)
== END ==
LOC: M SFHCPLAZ 09:35
DX: B20 Human immunodeficiency virus [HIV] disease (principal); K52.9 Noninfective gastroenteritis and colitis, unspecified; I25.10 Atherosclerotic heart disease of native coronary artery without angina pectoris

== ENCOUNTER → 2018-02-25 | Outpatient (REF) | payer OTHER ==
[~2018-02-25] MED LIST: ATOV5SUS PO; AZIT20SS2 PO; BACITAB PO; PRED20TA PO; ROLA1CHW PO; TUMS500C PO; VALG1TAB PO; VITATAB11 PO
== END ==
LOC: M LAB REF 16:14
PROVIDERS: ATTEND Internal Medicine Infectious Disease
DX: K52.9 Noninfective gastroenteritis and colitis, unspecified (principal)

== ENCOUNTER → 2018-05-18 | Outpatient (REF) | payer OTHER ==
[2018-05-18 13:06] LABS: ALBUMIN 3.6 GM/DL (3.2-5.2); ALT/SGPT 39 U/L (12-78); BILIRUBIN,TOTAL 0.4 MG/DL (0.2-1.0); BLOOD UREA NITROGEN 21 MG/DL (7-18); CALCIUM LEVEL 8.4 MG/DL (8.5-10.1); CARBON DIOXIDE LEVEL 26 MEQ/L (21-32); CHLORIDE LEVEL 109 MEQ/L (98-107); CREATININE FOR GFR 1.05 MG/DL (0.70-1.30); GLOMERULAR FILTRATION RATE > 60.0 (>60); GLUCOSE, FASTING 83 MG/DL (70-100); POTASSIUM SERUM 4.4 MEQ/L (3.5-5.1); SODIUM LEVEL 141 MEQ/L (136-145); TOTAL PROTEIN 8.9 GM/DL (6.4-8.2)
[2018-05-19 16:21] LABS: % CD8 Pos Lymph 41.1 % (12.0-35.5); %CD4 Pos Lymphs 4.8 % (30.8-58.5); ABS Basophils 0.1 x10E3/uL (0.0-0.2); ABS Eosinophils 0.1 x10E3/uL (0.0-0.4); ABS Monocytes 0.2 x10E3/uL (0.1-0.9); ABS Neutophils 1.5 x10E3/uL (1.4-7.0); Abs CD4 Helper 48 /uL (359-1519); Abs CD8 Suppres 411 /uL (109-897); CD4/CD8 Ratio 0.12 (0.92-3.72); Eosinophils 4 % (Not Estab.); HCT 38.9 % (37.5-51.0); HGB 13.1 g/dL (13.0-17.7); Immature Grans 0 % (Not Estab.); Lymphocytes 34 % (Not Estab.); MCH 32.2 pg (26.6-33.0); MCHC 33.7 g/dL (31.5-35.7); MCV 96 fL (79-97); Monocytes 6 % (Not Estab.); Neutrophils 54 % (Not Estab.); Platelets 173 x10E3/uL (150-379); RBC 4.07 x10E6/uL (4.14-5.80); RDW 14.8 % (12.3-15.4); WBC 2.8 x10E3/uL (3.4-10.8)
[2018-05-21 00:06] LABS: HIV-1 RNA PCR QUANT 2 LC550285 <20 copies/mL (.)
== END ==
LOC: M SFHCPLAZ 09:39
PROVIDERS: ATTEND Internal Medicine Infectious Disease
DX: K52.9 Noninfective gastroenteritis and colitis, unspecified (principal); B20 Human immunodeficiency virus [HIV] disease

== ENCOUNTER → 2018-08-03 | Outpatient (REF) | payer OTHER ==
[2018-08-03 19:32] LABS: ALBUMIN 3.7 GM/DL (3.2-5.2); ALT/SGPT 45 U/L (12-78); BILIRUBIN,TOTAL 0.3 MG/DL (0.2-1.0); BLOOD UREA NITROGEN 23 MG/DL (7-18); CALCIUM LEVEL 9.1 MG/DL (8.5-10.1); CARBON DIOXIDE LEVEL 29 MEQ/L (21-32); CHLORIDE LEVEL 106 MEQ/L (98-107); CREATININE FOR GFR 1.13 MG/DL (0.70-1.30); GLOMERULAR FILTRATION RATE > 60.0 (>60); GLUCOSE, FASTING 97 MG/DL (70-100); POTASSIUM SERUM 4.4 MEQ/L (3.5-5.1); SODIUM LEVEL 140 MEQ/L (136-145); TOTAL PROTEIN 8.3 GM/DL (6.4-8.2)
[2018-08-07 00:06] LABS: % CD8 Pos Lymph 51.9 % (12.0-35.5); %CD4 Pos Lymphs 9.3 % (30.8-58.5); ABS Lymphs 1.3 x10E3/uL (0.7-3.1); ABS Monocytes 0.3 x10E3/uL (0.1-0.9); ABS Neutophils 2.2 x10E3/uL (1.4-7.0); Abs CD4 Helper 121 /uL (359-1519); Abs CD8 Suppres 675 /uL (109-897); CD4/CD8 Ratio 0.18 (0.92-3.72); Eosinophils 1 % (Not Estab.); HCT 42.6 % (37.5-51.0); HGB 14.8 g/dL (13.0-17.7); HIV-1 RNA PCR QUANT 2 LC550285 100 copies/mL (.); Immature Grans 0 % (Not Estab.); Lymphocytes 33 % (Not Estab.); MCHC 34.7 g/dL (31.5-35.7); MCV 95 fL (79-97); Monocytes 9 % (Not Estab.); Neutrophils 57 % (Not Estab.); Platelets 179 x10E3/uL (150-450); RBC 4.49 x10E6/uL (4.14-5.80); RDW 14.1 % (12.3-15.4); WBC 3.9 x10E3/uL (3.4-10.8)
== END ==
LOC: M SFHCPLAZ 14:11
PROVIDERS: ATTEND Internal Medicine Infectious Disease
DX: B20 Human immunodeficiency virus [HIV] disease (principal); K52.9 Noninfective gastroenteritis and colitis, unspecified

== ENCOUNTER → 2019-03-23 | Outpatient (REF) | payer BC, SELFPAY ==
[2019-03-23 12:35] LABS: APPEARANCE, URINE CLOUDY (CLEAR); BACTERIA, URINE AUTO NEGATIVE (NEGATIVE); BILIRUBIN, URINE AUTO NEGATIVE (NEGATIVE); BLOOD, URINE BLOOD NEGATIVE (NEGATIVE); COLOR, URINE AMBER (YELLOW); GLUCOSE, URINE (UA) AUTO NEGATIVE (NEGATIVE); KETONE, URINE AUTO NEGATIVE (NEGATIVE); LEUKOCYTE ESTERASE, URINE AUTO NEGATIVE (NEGATIVE); NITRITE, URINE AUTO NEGATIVE (NEGATIVE); PROTEIN, URINE AUTO NEGATIVE (NEGATIVE); RBC, URINE AUTO 0 /HPF (0-3); SPECIFIC GRAVITY URINE AUTO 1.021 (1.002-1.035); SQUAMOUS EPITHELIAL CELL UR AU 0 /HPF (0-6); UROBILINOGEN, URINE AUTO 0.2 mg/dL (0.0-2.0); WBC, URINE AUTO 0 /HPF (0-3)
[2019-03-23 13:29] LABS: ALBUMIN 3.8 GM/DL (3.2-5.2); ALT/SGPT 37 U/L (12-78); BILIRUBIN,TOTAL 0.6 MG/DL (0.2-1.0); BLOOD UREA NITROGEN 16 MG/DL (7-18); CARBON DIOXIDE LEVEL 27 MEQ/L (21-32); CHLORIDE LEVEL 108 MEQ/L (98-107); CHOLESTEROL LEVEL 131 MG/DL (<200); CHOLESTEROL RISK RATIO 3.852 (<5); CREATININE FOR GFR 1.13 MG/DL (0.70-1.30); GLOMERULAR FILTRATION RATE > 60.0 (>60); GLUCOSE, FASTING 96 MG/DL (70-100); HDL CHOLESTEROL 34 MG/DL (>40); LDL CHOLESTEROL 75 MG/DL (<100); NON-HDL-C 97 MG/DL; POTASSIUM SERUM 4.8 MEQ/L (3.5-5.1); SODIUM LEVEL 140 MEQ/L (136-145); TOTAL PROTEIN 8.4 GM/DL (6.4-8.2); TRIGLYCERIDES LEVEL 108 MG/DL (<150)
[2019-03-23 13:36] LABS: CHLAMYDIA DNA AMPLIFICATION NEGATIVE (NEGATIVE); GC DNA AMPLIFICATION NEGATIVE (NEGATIVE)
[2019-03-27 00:07] LABS: % CD8 Pos Lymph 55.6 % (12.0-35.5); %CD4 Pos Lymphs 4.8 % (30.8-58.5); ABS Eosinophils 0.1 x10E3/uL (0.0-0.4); ABS Lymphs 1.1 x10E3/uL (0.7-3.1); ABS Monocytes 0.3 x10E3/uL (0.1-0.9); ABS Neutophils 1.6 x10E3/uL (1.4-7.0); Abs CD4 Helper 53 /uL (359-1519); Abs CD8 Suppres 612 /uL (109-897); CD4/CD8 Ratio 0.09 (0.92-3.72); Eosinophils 4 % (Not Estab.); HCT 46.4 % (37.5-51.0); HGB 15.4 g/dL (13.0-17.7); HIV-1 RNA PCR QUANT 2 LC550285 218890 copies/mL (.); Immature Grans 0 % (Not Estab.); Lymphocytes 35 % (Not Estab.); MCH 31.6 pg (26.6-33.0); MCHC 33.2 g/dL (31.5-35.7); MCV 95 fL (79-97); Monocytes 10 % (Not Estab.); Neutrophils 50 % (Not Estab.); Platelets 154 x10E3/uL (150-450); RBC 4.87 x10E6/uL (4.14-5.80); RDW 12.5 % (11.6-15.4); RPR Non Reactive (Non Reactive); WBC 3.2 x10E3/uL (3.4-10.8)
== END ==
LOC: M SFHCPLAZ 08:43
PROVIDERS: ATTEND Internal Medicine Infectious Disease
DX: B20 Human immunodeficiency virus [HIV] disease (principal); I25.10 Atherosclerotic heart disease of native coronary artery without angina pectoris

== ENCOUNTER → 2019-05-25 | Outpatient (REF) | payer BC ==
[2019-05-28 00:06] LABS: % CD8 Pos Lymph 42.7 % (12.0-35.5); %CD4 Pos Lymphs 9.5 % (30.8-58.5); ABS Eosinophils 0.1 x10E3/uL (0.0-0.4); ABS Lymphs 1.2 x10E3/uL (0.7-3.1); ABS Monocytes 0.5 x10E3/uL (0.1-0.9); ABS Neutophils 2.3 x10E3/uL (1.4-7.0); Abs CD4 Helper 114 /uL (359-1519); Abs CD8 Suppres 512 /uL (109-897); CD4/CD8 Ratio 0.22 (0.92-3.72); Eosinophils 2 % (Not Estab.); HCT 42.1 % (37.5-51.0); HGB 14.3 g/dL (13.0-17.7); HIV-1 RNA PCR QUANT 2 LC550285 120 copies/mL (.); HIV-1 RNA PCR QUANT 3 LC550285 2.079 (.); Immature Grans 0 % (Not Estab.); Lymphocytes 30 % (Not Estab.); MCH 31.6 pg (26.6-33.0); MCV 93 fL (79-97); Monocytes 11 % (Not Estab.); Neutrophils 56 % (Not Estab.); Platelets 160 x10E3/uL (150-450); RBC 4.52 x10E6/uL (4.14-5.80); RDW 14.5 % (11.6-15.4)
== END ==
LOC: M SFHCPLAZ 09:24
PROVIDERS: ATTEND Internal Medicine Infectious Disease
DX: B20 Human immunodeficiency virus [HIV] disease (principal)

== ENCOUNTER → 2019-07-05 | Outpatient (REF) | payer BC ==
[2019-07-06 14:10] LABS: % CD8 Pos Lymph 46.3 % (12.0-35.5); %CD4 Pos Lymphs 8.8 % (30.8-58.5); ABS Eosinophils 0.1 x10E3/uL (0.0-0.4); ABS Lymphs 1.8 x10E3/uL (0.7-3.1); ABS Monocytes 0.5 x10E3/uL (0.1-0.9); ABS Neutophils 2.7 x10E3/uL (1.4-7.0); Abs CD4 Helper 158 /uL (359-1519); Abs CD8 Suppres 833 /uL (109-897); CD4/CD8 Ratio 0.19 (0.92-3.72); Eosinophils 2 % (Not Estab.); HCT 43.3 % (37.5-51.0); HGB 15.4 g/dL (13.0-17.7); Immature Grans 0 % (Not Estab.); Lymphocytes 35 % (Not Estab.); MCH 33.4 pg (26.6-33.0); MCHC 35.6 g/dL (31.5-35.7); MCV 94 fL (79-97); Monocytes 10 % (Not Estab.); Neutrophils 52 % (Not Estab.); Platelets 179 x10E3/uL (150-450); RBC 4.61 x10E6/uL (4.14-5.80); RDW 13.3 % (11.6-15.4); WBC 5.2 x10E3/uL (3.4-10.8)
== END ==
LOC: M SFHCPLAZ 10:55
PROVIDERS: ATTEND Internal Medicine Infectious Disease
DX: B20 Human immunodeficiency virus [HIV] disease (principal)

== ENCOUNTER → 2019-10-25 | Outpatient (REF) | payer BC ==
[2019-12-01 10:28] LABS: HIV-1 RNA PCR QUANT 2 LC550285 SEE SEPARATE REPORT (NORMAL)
[2019-12-01 10:29] LABS: Abs CD4 Helper See Separate Report
[2019-12-07 13:32] LABS: ALBUMIN 4.3 GM/DL (3.2-5.2); BILIRUBIN,TOTAL 0.4 MG/DL (0.2-1.0); CALCIUM LEVEL 9.4 MG/DL (8.5-10.1); CREATININE FOR GFR 1.44 MG/DL (0.70-1.30); GLOMERULAR FILTRATION RATE 55.3 (>56); POTASSIUM SERUM 4.6 MEQ/L (3.5-5.1); TOTAL PROTEIN 8.5 GM/DL (6.4-8.2)
== END ==
LOC: M SFHCPLAZ 09:48
PROVIDERS: ATTEND Internal Medicine Infectious Disease
DX: B20 Human immunodeficiency virus [HIV] disease (principal); C46.9 Kaposi's sarcoma, unspecified; K52.9 Noninfective gastroenteritis and colitis, unspecified

== ENCOUNTER → 2020-01-25 | Outpatient (REF) | payer BC ==
[2020-01-25 11:09] LABS: ALBUMIN 3.5 GM/DL (3.2-5.2); ALT/SGPT 61 U/L (12-78); BILIRUBIN,TOTAL 0.4 MG/DL (0.2-1.0); BLOOD UREA NITROGEN 16 MG/DL (7-18); CALCIUM LEVEL 9.1 MG/DL (8.5-10.1); CARBON DIOXIDE LEVEL 30 MEQ/L (21-32); CHLORIDE LEVEL 107 MEQ/L (98-107); CHOLESTEROL LEVEL 146 MG/DL (<200); CHOLESTEROL RISK RATIO 3.244 (<5); CREATININE FOR GFR 1.22 MG/DL (0.70-1.30); GLOMERULAR FILTRATION RATE > 60.0 (>56); GLUCOSE, FASTING 100 MG/DL (70-100); HDL CHOLESTEROL 45 MG/DL (>40); LDL CHOLESTEROL 64 MG/DL (<100); NON-HDL-C 101 MG/DL; POTASSIUM SERUM 4.7 MEQ/L (3.5-5.1); SODIUM LEVEL 141 MEQ/L (136-145); TOTAL PROTEIN 7.3 GM/DL (6.4-8.2); TRIGLYCERIDES LEVEL 185 MG/DL (<150)
[2020-01-25 11:43] LABS: HEMOGLOBIN A1c 5.3 %
[2020-01-27 14:08] LABS: %CD4 Pos Lymphs 11.4 % (30.8-58.5); ABS Eosinophils 0.1 x10E3/uL (0.0-0.4); ABS Lymphs 1.1 x10E3/uL (0.7-3.1); ABS Monocytes 0.4 x10E3/uL (0.1-0.9); ABS Neutophils 3.1 x10E3/uL (1.4-7.0); Abs CD4 Helper 125 /uL (359-1519); Abs CD8 Suppres 495 /uL (109-897); CD4/CD8 Ratio 0.25 (0.92-3.72); Eosinophils 1 % (Not Estab.); HCT 41.3 % (37.5-51.0); HGB 14.5 g/dL (13.0-17.7); HIV-1 RNA PCR QUANT 2 LC550285 <20 copies/mL (.); Immature Grans 0 % (Not Estab.); Lymphocytes 23 % (Not Estab.); MCH 34.9 pg (26.6-33.0); MCHC 35.1 g/dL (31.5-35.7); MCV 99 fL (79-97); Monocytes 9 % (Not Estab.); Neutrophils 67 % (Not Estab.); Platelets 214 x10E3/uL (150-450); RBC 4.16 x10E6/uL (4.14-5.80); RDW 12.3 % (11.6-15.4); WBC 4.7 x10E3/uL (3.4-10.8)
== END ==
LOC: M SFHCPLAZ 08:36
PROVIDERS: ATTEND Internal Medicine Infectious Disease
DX: B20 Human immunodeficiency virus [HIV] disease (principal); E78.00 Pure hypercholesterolemia, unspecified

== ENCOUNTER → 2020-05-23 | Outpatient (REF) | payer OTHER ==
[2020-05-23 11:12] LABS: ALBUMIN 3.8 GM/DL (3.2-5.2); ALT/SGPT 30 U/L (12-78); BILIRUBIN,TOTAL 0.3 MG/DL (0.2-1.0); BLOOD UREA NITROGEN 22 MG/DL (7-18); CALCIUM LEVEL 9.9 MG/DL (8.5-10.1); CARBON DIOXIDE LEVEL 29 MEQ/L (21-32); CHLORIDE LEVEL 105 MEQ/L (98-107); CREATININE FOR GFR 1.19 MG/DL (0.70-1.30); GLOMERULAR FILTRATION RATE > 60.0 (>56); GLUCOSE, FASTING 100 MG/DL (70-100); POTASSIUM SERUM 4.9 MEQ/L (3.5-5.1); SODIUM LEVEL 138 MEQ/L (136-145); TOTAL PROTEIN 8.7 GM/DL (6.4-8.2)
== END ==
LOC: M SFHCPLAZ 08:46
PROVIDERS: ATTEND Internal Medicine Infectious Disease
DX: B20 Human immunodeficiency virus [HIV] disease (principal)

== ENCOUNTER → 2020-09-26 | Outpatient (CLI) | payer OTHER ==
[2020-09-28 12:26] LABS: % CD8 Pos Lymph 42.6 % (12.0-35.5); %CD4 Pos Lymphs 12.8 % (30.8-58.5); ABS Eosinophils 0.1 x10E3/uL (0.0-0.4); ABS Lymphs 1.4 x10E3/uL (0.7-3.1); ABS Monocytes 0.4 x10E3/uL (0.1-0.9); ABS Neutophils 2.4 x10E3/uL (1.4-7.0); Abs CD4 Helper 179 /uL (359-1519); Abs CD8 Suppres 596 /uL (109-897); Eosinophils 1 % (Not Estab.); HCT 41.8 % (37.5-51.0); HGB 14.7 g/dL (13.0-17.7); HIV-1 RNA PCR QUANT 2 LC550285 40 copies/mL (.); HIV-1 RNA PCR QUANT 3 LC550285 1.602 (.); Immature Grans 0 % (Not Estab.); Lymphocytes 32 % (Not Estab.); MCH 33.9 pg (26.6-33.0); MCHC 35.2 g/dL (31.5-35.7); MCV 97 fL (79-97); Monocytes 10 % (Not Estab.); Neutrophils 56 % (Not Estab.); Platelets 188 x10E3/uL (150-450); RBC 4.33 x10E6/uL (4.14-5.80); RDW 12.7 % (11.6-15.4); WBC 4.3 x10E3/uL (3.4-10.8)
== END ==
LOC: M PLALAB 08:45
PROVIDERS: ATTEND Internal Medicine Infectious Disease
DX: B20 Human immunodeficiency virus [HIV] disease (principal)

== ENCOUNTER → 2021-11-20 | Outpatient (CLI) | payer BC, OTHER ==
[2021-11-20 16:38] LABS: ALT/SGPT 41 U/L (12-78); BILIRUBIN,TOTAL 0.4 MG/DL (0.2-1.0); BLOOD UREA NITROGEN 16 MG/DL (7-18); CALCIUM LEVEL 9.3 MG/DL (8.5-10.1); CARBON DIOXIDE LEVEL 29 MEQ/L (21-32); CHLORIDE LEVEL 105 MEQ/L (98-107); CHOLESTEROL LEVEL 140 MG/DL (<200); CHOLESTEROL RISK RATIO 2.857 (<5); GLOMERULAR FILTRATION RATE > 60.0 (>56); GLUCOSE, FASTING 96 MG/DL (70-100); HDL CHOLESTEROL 49 MG/DL (>40); LDL CHOLESTEROL 58 MG/DL (<100); NON-HDL-C 91 MG/DL; POTASSIUM SERUM 4.3 MEQ/L (3.5-5.1); SODIUM LEVEL 139 MEQ/L (136-145); TOTAL PROTEIN 7.8 GM/DL (6.4-8.2); TRIGLYCERIDES LEVEL 164 MG/DL (<150)
[2021-11-22 17:08] LABS: % CD8 Pos Lymph 43.8 % (12.0-35.5); %CD4 Pos Lymphs 16.7 % (30.8-58.5); ABS Lymphs 1.4 x10E3/uL (0.7-3.1); ABS Monocytes 0.3 x10E3/uL (0.1-0.9); ABS Neutophils 3.9 x10E3/uL (1.4-7.0); Abs CD4 Helper 234 /uL (359-1519); Abs CD8 Suppres 613 /uL (109-897); CD4/CD8 Ratio 0.38 (0.92-3.72); Eosinophils 1 % (Not Estab.); HCT 44.6 % (37.5-51.0); HGB 15.1 g/dL (13.0-17.7); HIV-1 RNA PCR QUANT 2 LC550285 <20 copies/mL (.); Immature Grans 0 % (Not Estab.); Lymphocytes 24 % (Not Estab.); MCH 34.6 pg (26.6-33.0); MCHC 33.9 g/dL (31.5-35.7); MCV 102 fL (79-97); Monocytes 6 % (Not Estab.); Neutrophils 68 % (Not Estab.); Platelets 227 x10E3/uL (150-450); RBC 4.36 x10E6/uL (4.14-5.80); RDW 11.7 % (11.6-15.4); RPR Reactive (Non Reactive); WBC 5.7 x10E3/uL (3.4-10.8)
== END ==
LOC: M PLALAB 13:10
PROVIDERS: ATTEND Internal Medicine Infectious Disease
DX: B20 Human immunodeficiency virus [HIV] disease (principal); E78.00 Pure hypercholesterolemia, unspecified; E66.9 Obesity, unspecified; Z86.19 Personal history of other infectious and parasitic diseases

== ENCOUNTER → 2022-04-19 | Outpatient (REF) | payer BC, OTHER ==
[~2022-04-19] MED LIST changes: -VALG1TAB PO; +VALG450T10 PO
== END ==
LOC: M LAB REF 15:40
PROVIDERS: ATTEND Surgery
DX: L72.0 Epidermal cyst (principal)

== ENCOUNTER → 2022-05-20 | Outpatient (CLI) | payer BC, OTHER ==
[2022-05-20 15:35] LABS: ALBUMIN 3.8 G/DL (3.2-5.2); ALKALINE PHOSPHATASE 74 U/L (46-116); ALT/SGPT 22 U/L (7.0-40); AST/SGOT 18 U/L (<34); BILIRUBIN,TOTAL 0.6 MG/DL (0.3-1.2); BLOOD UREA NITROGEN 19 MG/DL (9-23); CALCIUM LEVEL 9.2 MG/DL (8.5-10.1); CARBON DIOXIDE LEVEL 28 MMOL/L (20-31); CHLORIDE LEVEL 105 MMOL/L (98-107); CREATININE FOR GFR 1.07 MG/DL (0.70-1.30); GLOMERULAR FILTRATION RATE > 60.0 (>56); GLUCOSE, FASTING 84 MG/DL (60-100); POTASSIUM SERUM 4.3 MMOL/L (3.5-5.1); SODIUM LEVEL 139 MMOL/L (136-145); TOTAL PROTEIN 7.3 G/DL (5.7-8.2)
[2022-05-21 23:07] LABS: % CD8 Pos Lymph 43.6 % (12.0-35.5); %CD4 Pos Lymphs 12.3 % (30.8-58.5); ABS Eosinophils 0.1 x10E3/uL (0.0-0.4); ABS Lymphs 1.3 x10E3/uL (0.7-3.1); ABS Monocytes 0.4 x10E3/uL (0.1-0.9); ABS Neutophils 2.7 x10E3/uL (1.4-7.0); Abs CD4 Helper 160 /uL (359-1519); Abs CD8 Suppres 567 /uL (109-897); CD4/CD8 Ratio 0.28 (0.92-3.72); Eosinophils 1 % (Not Estab.); HCT 45.2 % (37.5-51.0); HGB 15.6 g/dL (13.0-17.7); HIV-1 RNA PCR QUANT 2 LC550285 <20 copies/mL (.); Immature Grans 0 % (Not Estab.); Lymphocytes 29 % (Not Estab.); MCH 33.5 pg (26.6-33.0); MCHC 34.5 g/dL (31.5-35.7); MCV 97 fL (79-97); Monocytes 10 % (Not Estab.); Neutrophils 59 % (Not Estab.); Platelets 197 x10E3/uL (150-450); RBC 4.66 x10E6/uL (4.14-5.80); RDW 11.9 % (11.6-15.4); WBC 4.5 x10E3/uL (3.4-10.8)
== END ==
LOC: M PLALAB 09:32
PROVIDERS: ATTEND Internal Medicine Infectious Disease
DX: B20 Human immunodeficiency virus [HIV] disease (principal)

== ENCOUNTER → 2022-11-19 | Outpatient (CLI) | payer BC, OTHER ==
[2022-11-19 14:06] LABS: ALBUMIN 3.8 G/DL (3.2-5.2); ALKALINE PHOSPHATASE 71 U/L (46-116); ALT/SGPT 37 U/L (7.0-40); AST/SGOT 15 U/L (<34); BILIRUBIN,TOTAL 0.4 MG/DL (0.3-1.2); BLOOD UREA NITROGEN 16 MG/DL (9-23); CALCIUM LEVEL 9.1 MG/DL (8.5-10.1); CARBON DIOXIDE LEVEL 28 MMOL/L (20-31); CHLORIDE LEVEL 106 MMOL/L (98-107); CHOLESTEROL LEVEL 183 MG/DL (<200); CHOLESTEROL RISK RATIO 3.52 (<5); GLOMERULAR FILTRATION RATE > 60.0 (>56); GLUCOSE, FASTING 92 MG/DL (60-100); HDL CHOLESTEROL 51.9 MG/DL (>40); LDL CHOLESTEROL 83.5 MG/DL (<100); NON-HDL-C 131.1 MG/DL; POTASSIUM SERUM 4.8 MMOL/L (3.5-5.1); SODIUM LEVEL 141 MMOL/L (136-145); TRIGLYCERIDES LEVEL 238 MG/DL (<150)
[2022-11-21 06:08] LABS: % CD8 Pos Lymph 42.5 % (12.0-35.5); %CD4 Pos Lymphs 13.2 % (30.8-58.5); ABS Eosinophils 0.1 x10E3/uL (0.0-0.4); ABS Monocytes 0.3 x10E3/uL (0.1-0.9); ABS Neutophils 2.6 x10E3/uL (1.4-7.0); Abs CD4 Helper 132 /uL (359-1519); Abs CD8 Suppres 425 /uL (109-897); CD4/CD8 Ratio 0.31 (0.92-3.72); Eosinophils 1 % (Not Estab.); HCT 43.8 % (37.5-51.0); HGB 15.1 g/dL (13.0-17.7); HIV-1 RNA PCR QUANT 2 LC550285 <20 copies/mL (.); Immature Grans 0 % (Not Estab.); Lymphocytes 25 % (Not Estab.); MCH 33.8 pg (26.6-33.0); MCHC 34.5 g/dL (31.5-35.7); MCV 98 fL (79-97); Monocytes 8 % (Not Estab.); Neutrophils 65 % (Not Estab.); Platelets 180 x10E3/uL (150-450); RBC 4.47 x10E6/uL (4.14-5.80); RDW 12.8 % (11.6-15.4); WBC 4.1 x10E3/uL (3.4-10.8)
== END ==
LOC: M PLALAB 09:49
PROVIDERS: ATTEND Internal Medicine Infectious Disease
DX: B20 Human immunodeficiency virus [HIV] disease (principal); E78.00 Pure hypercholesterolemia, unspecified; Z12.5 Encounter for screening for malignant neoplasm of prostate
CPT/HCPCS: 36415; 80053; 80061; 86360; 87536; G0103

== ENCOUNTER → 2023-02-17 | Outpatient (CLI) | payer BC, OTHER ==
[2023-02-17 13:11] LABS: BASO % 0.9 % (0.0-1.0); EOS # 0.1 10^3/uL (0.0-0.5); EOS % 1.3 % (0.0-3.0); HEMATOCRIT 48.6 % (42.0-52.0); HEMOGLOBIN 16.1 g/dl (13.5-17.5); LYMPH # 1.3 10^3/uL (1.5-5.0); LYMPH % 29.3 % (24.0-44.0); MEAN CORPUSCULAR HEMOGLOBIN 32.9 pg (27.0-33.0); MEAN CORPUSCULAR HGB CONC 33.1 g/dl (32.0-36.5); MEAN CORPUSCULAR VOLUME 99.4 fl (80.0-96.0); MONO # 0.4 10^3/uL (0.0-0.8); MONO % 8.7 % (2.0-8.0); NEUTROPHILS # 2.7 10^3/uL (1.5-8.5); NEUTROPHILS % 59.4 % (36.0-66.0); PLATELET COUNT, AUTOMATED 193 10^3/uL (150-450); RED BLOOD COUNT 4.89 10^6/uL (4.30-6.10); WHITE BLOOD COUNT 4.5 10^3/uL (4.0-10.0)
[2023-02-17 13:32] LABS: INR 1.08; PARTIAL THROMBOPLASTIN TIME 28.3 SECONDS (24.8-34.2); PROTHROMBIN TIME 13.6 SECONDS (12.5-14.5)
[2023-02-17 13:49] LABS: BLOOD UREA NITROGEN 19 MG/DL (9-23); CALCIUM LEVEL 8.9 MG/DL (8.5-10.1); CARBON DIOXIDE LEVEL 28 MMOL/L (20-31); CHLORIDE LEVEL 104 MMOL/L (98-107); GLOMERULAR FILTRATION RATE > 60.0 (>56); GLUCOSE, FASTING 96 MG/DL (60-100); POTASSIUM SERUM 4.4 MMOL/L (3.5-5.1); SODIUM LEVEL 139 MMOL/L (136-145); THYROID STIMULATING HORMONE 1.492 uIU/ML (0.55-4.78)
== END ==
LOC: M PLAIMG 09:46
PROVIDERS: ATTEND Internal Medicine Infectious Disease
DX: Z01.818 Encounter for other preprocedural examination (principal); R53.83 Other fatigue; K42.9 Umbilical hernia without obstruction or gangrene; I25.10 Atherosclerotic heart disease of native coronary artery without angina pectoris

== ENCOUNTER 2023-03-07 10:37 | Day surgery (SDC) | payer BC, OTHER ==
[~2023-03-07] VITALS: Ht 182.9 cm; Wt 122.4 kg
[~2023-03-07 10:37] MED LIST changes: +ATOR1TAB21 PO; +DICY20TA20 PO; +EQL50TAB2 PO; +PROB250C PO; +SPIR500T PO; +TRIU1TAB PO; +UNRESOLVED CLARIFICATION ENTRY XX SCH; +VITA100093 PO; +VITA500C24 PO; +ZOLO100T PO
[2023-03-07] MEDS ORDERED: ASPI81TA26 PO (11:02)
[2023-03-07] MEDS ORDERED: LR 1,000 ML IV SCH (11:05)
[2023-03-07] MEDS ORDERED: ceFAZolin SOD 2 GM in IV 1 EA IV ONE (11:10)
[2023-03-07] MEDS ORDERED: ceFAZolin SOD 1 GM in D5W MINI-BAG PLUS 50 ML IV ONE (11:45)
[2023-03-07] MEDS ORDERED: LIDOCAINE 2% 100MG/5ML SDV (FOR ANES.) As Ordered ONE (12:38)
[2023-03-07] MEDS ORDERED: MIDAZOLAM INJ 2MG/2ML VIAL As Ordered ONE (12:38)
[2023-03-07] MEDS ORDERED: KETOROLAC 60MG 2ML VIAL As Ordered ONE (12:38)
[2023-03-07] MEDS ORDERED: ONDANSETRON 4MG 2ML VIAL As Ordered ONE (12:38)
[2023-03-07] MEDS ORDERED: fentaNYL 100 MCG/2 ML INJECTION As Ordered ONE (12:38)
[2023-03-07] MEDS ORDERED: propofoL 200 MG/20 ML VIAL As Ordered ONE (12:38)
[2023-03-07] MEDS ORDERED: ROCURONIUM BROMIDE 50MG/5ML VIAL As Ordered ONE ×2 (12:38→13:39)
[2023-03-07] MEDS ORDERED: SUGAMMADEX SODIUM 500 MG/5 ML VIAL (BRIDION) As Ordered ONE (12:38)
[2023-03-07] MEDS ORDERED: ACETAMINOPHEN 1000MG 100ML IV BAG As Ordered ONE (12:38)
[2023-03-07] MEDS ORDERED: dexmedeTOMIDine (4MCG/ML)200MCG/50ML BTL (PRECEDEX) As Ordered ONE (13:58)
[2023-03-07] MEDS ORDERED: ONDANSETRON 4MG 2ML VIAL IV PRN (14:05)
[2023-03-07] MEDS ORDERED: fentaNYL 100 MCG/2 ML INJECTION IV PRN (14:05)
[2023-03-07] MEDS ORDERED: KETAMINE HCL 200MG/20ML VIAL As Ordered ONE (14:11)
[2023-03-07] MEDS: oxyCODONE 5MG TAB PO PRN ×2 (14:52→15:41)
[2023-03-07] MEDS: MORPHINE 2 MG/ML 1ML VIAL IV PRN ×2 (14:52→14:57)
[2023-03-07 15:55] VITALS: BP 126/72; TEMP 97.2; O2SAT 97
[2023-03-07] MEDS ORDERED: NORCO, ANEXSIA 5/325MG TABLET (HYDROcodone/ACETAMINOPHEN) PO PRN (17:00)
== END 2023-03-07 16:12 | disposition home or self-care (01) ==
LOC: M SDC 10:37
PROVIDERS: ATTEND Surgery
DX: K43.9 Ventral hernia without obstruction or gangrene (principal); I25.10 Atherosclerotic heart disease of native coronary artery without angina pectoris; I25.2 Old myocardial infarction; B20 Human immunodeficiency virus [HIV] disease; Z79.899 Other long term (current) drug therapy; F17.210 Nicotine dependence, cigarettes, uncomplicated; E78.00 Pure hypercholesterolemia, unspecified; Z88.2 Allergy status to sulfonamides; Z88.8 Allergy status to other drugs, medicaments and biological substances; Z95.5 Presence of coronary angioplasty implant and graft
CPT/HCPCS: 49593; C1781; J0131; J0665; J0690; J1100; J1885; J2250; J2405; J3010

== ENCOUNTER → 2023-11-18 | Outpatient (CLI) | payer BC ==
[~2023-11-18] MED LIST changes: +ASPI81TA26 PO; -UNRESOLVED CLARIFICATION ENTRY XX SCH
[2023-11-19 15:27] LABS: ABSOLUTE CD4 HELPER 165 /uL (359-1519); BASOPHILS 1 % (Not Estab.); EOSINOPHILS 1 % (Not Estab.); HGB 15.5 g/dL (13.0-17.7); LYMPHOCYTES 31 % (Not Estab.); LYMPHOCYTES ABSOLUTE 1.1 x10E3/uL (0.7-3.1); MCH 32.6 pg (26.6-33.0); MCV 99 fL (79-97); MONOCYTES 9 % (Not Estab.); MONOCYTES ABSOLUTE 0.3 x10E3/uL (0.1-0.9); NEUTROPHILS 58 % (Not Estab.); NEUTROPHILS ABSOLUTE 2.1 x10E3/uL (1.4-7.0); PLT 177 x10E3/uL (150-450); RBC 4.75 x10E6/uL (4.14-5.80); WBC 3.7 x10E3/uL (3.4-10.8)
[2023-11-21 14:56] LABS: HIV-1 RNA PCR QUANT 3 1.41 (NOT DETECTED)
== END ==
LOC: M PLALAB 09:03
PROVIDERS: ATTEND Internal Medicine Infectious Disease
DX: B20 Human immunodeficiency virus [HIV] disease (principal)

== ENCOUNTER → 2023-11-18 | Outpatient (CLI) | payer BC ==
[2023-11-18 14:06] LABS: BASO # 0.1 10^3/uL (0.0-0.2); BASO % 1.3 % (0.0-1.0); EOS % 1.1 % (0.0-3.0); HEMATOCRIT 45.9 % (42.0-52.0); HEMOGLOBIN 15.3 g/dl (13.5-17.5); LYMPH # 1.2 10^3/uL (1.5-5.0); LYMPH % 32.5 % (24.0-44.0); MEAN CORPUSCULAR HEMOGLOBIN 32.8 pg (27.0-33.0); MEAN CORPUSCULAR HGB CONC 33.3 g/dl (32.0-36.5); MEAN CORPUSCULAR VOLUME 98.3 fl (80.0-96.0); MONO # 0.3 10^3/uL (0.0-0.8); MONO % 8.6 % (2.0-8.0); NEUTROPHILS # 2.1 10^3/uL (1.5-8.5); NEUTROPHILS % 56.2 % (36.0-66.0); PLATELET COUNT, AUTOMATED 176 10^3/uL (150-450); RED BLOOD COUNT 4.67 10^6/uL (4.30-6.10); WHITE BLOOD COUNT 3.7 10^3/uL (4.0-10.0)
[2023-11-18 14:24] LABS: HEMOGLOBIN A1c 5.3 % (4.0-6.0)
[2023-11-18 14:26] LABS: ALKALINE PHOSPHATASE 79 U/L (46-116); ALT/SGPT 35 U/L (7.0-40); AST/SGOT 13 U/L (<34); BILIRUBIN,TOTAL 0.5 MG/DL (0.3-1.2); BLOOD UREA NITROGEN 21 MG/DL (9-23); CARBON DIOXIDE LEVEL 28 MMOL/L (20-31); CHLORIDE LEVEL 108 MMOL/L (98-107); CHOLESTEROL LEVEL 163 MG/DL (<200); CHOLESTEROL RISK RATIO 3.43 (<5); CREATININE FOR GFR 1.08 MG/DL (0.70-1.30); GLOMERULAR FILTRATION RATE > 60.0 (>56); GLUCOSE, FASTING 107 MG/DL (60-100); HDL CHOLESTEROL 47.4 MG/DL (>40); LDL CHOLESTEROL 89.6 MG/DL (<100); NON-HDL-C 115.6 MG/DL; POTASSIUM SERUM 5.2 MMOL/L (3.5-5.1); PROSTATIC SPECIFIC AG MONITOR 0.68 NG/ML (< 4.00); SODIUM LEVEL 141 MMOL/L (136-145); TOTAL PROTEIN 7.4 G/DL (5.7-8.2); TRIGLYCERIDES LEVEL 130 MG/DL (<150)
[2023-11-18 14:30] LABS: FREE T3 3.6 PG/ML (2.3-4.2); THYROID PEROXIDASE ANTIBODY 38 U/ML (<60.0); VITAMIN B12 LEVEL 454 PG/ML (211-911)
[2023-11-18 14:31] LABS: TOTAL 25(OH) VITAMIN D 35.6 NG/ML (20.0-100.0)
[2023-11-18 14:32] LABS: ESTRADIOL 24.8 PG/ML (<39.8)
[2023-11-18 14:35] LABS: FREE T4 1.21 NG/DL (0.89-1.76)
[2023-11-22 00:43] LABS: TESTOSTERONE FREE (DIRECT) 77.2 pg/mL (35.0-155.0)
== END ==
LOC: M PLALAB 09:06
PROVIDERS: ATTEND Physician Assistant
DX: R53.83 Other fatigue (principal)

== ENCOUNTER → 2024-04-29 | Outpatient (CLI) | payer BC | LOC: M SLEEP 20:00 | PROVIDERS: ATTEND Physician Assistant | DX: G47.33 Obstructive sleep apnea (adult) (pediatric) (principal) ==

== ENCOUNTER → 2024-11-16 | Outpatient (CLI) | payer BC ==
[~2024-11-16] MED LIST changes: -EQL50TAB2 PO; +VITA1TAB82 PO
[2024-11-16 15:08] LABS: APPEARANCE, URINE CLEAR (CLEAR); BACTERIA, URINE AUTO NEGATIVE (NEGATIVE); BILIRUBIN, URINE AUTO NEGATIVE (NEGATIVE); BLOOD, URINE BLOOD NEGATIVE (NEGATIVE); CALCIUM OXALATE CRYSTALS SMALL; GLUCOSE, URINE (UA) AUTO NEGATIVE (NEGATIVE); KETONE, URINE AUTO NEGATIVE (NEGATIVE); LEUKOCYTE ESTERASE, URINE AUTO NEGATIVE (NEGATIVE); MUCUS, URINE SMALL (NEGATIVE); NITRITE, URINE AUTO NEGATIVE (NEGATIVE); PROTEIN, URINE AUTO NEGATIVE (NEGATIVE); RBC, URINE AUTO 1 /HPF (0-3); SPECIFIC GRAVITY URINE AUTO 1.019 (1.002-1.035); SQUAMOUS EPITHELIAL CELL UR AU 0 /HPF (0-6); UROBILINOGEN, URINE AUTO 0.2 mg/dL (0.0-2.0); WBC, URINE AUTO 3 /HPF (0-3)
[2024-11-16 15:56] LABS: ALT/SGPT 55 U/L (7.0-40); AST/SGOT 34 U/L (<34); CALCIUM LEVEL 10.2 MG/DL (8.5-10.1); CARBON DIOXIDE LEVEL 26 MMOL/L (20-31); CHLORIDE LEVEL 105 MMOL/L (98-107); CHOLESTEROL LEVEL 129 MG/DL (<200); CHOLESTEROL RISK RATIO 2.76 (<5); CREATININE FOR GFR 1.22 MG/DL (0.70-1.30); GLOMERULAR FILTRATION RATE 70.0 (>56); LDL CHOLESTEROL 55.5 MG/DL (<100); NON-HDL-C 82.3 MG/DL; POTASSIUM SERUM 4.8 MMOL/L (3.5-5.1); SODIUM LEVEL 142 MMOL/L (136-145); TRIGLYCERIDES LEVEL 134 MG/DL (<150)
[2024-11-16 16:37] LABS: HEPATITIS B SURFACE ANTIBODY NEGATIVE (POSITIVE); HEPATITIS C VIRUS ABY INDEX < 0.02 INDEX (<0.8)
[2024-11-16 17:13] LABS: ESTIMATED AVERAGE GLUCOSE 111.0 MG/DL (60-110)
[2024-11-18 11:01] LABS: RPR NON-REACTIVE (NON-REACTIVE)
[2024-11-18 21:17] LABS: HIV-1 RNA PCR QUANT 2 <20 DETECTED copies/mL (NOT DETECTED); HIV-1 RNA PCR QUANT 3 <1.30 DETECTED (NOT DETECTED)
[2024-11-19 00:02] LABS: % CD4 15 % (30-61); %CD8 45 % (12-42); ABSOLUTE CD4 CELLS 186 cells/uL (490-1740); ABSOLUTE CD8 CELLS 563 cells/uL (180-1170); ABSOLUTE LYMPHOCYTES 1247 cells/uL (850-3900); CD4 CD8 RATIO 0.33 (0.86-5.00)
== END ==
LOC: M PLALAB 09:12
PROVIDERS: ATTEND Internal Medicine Infectious Disease
DX: B20 Human immunodeficiency virus [HIV] disease (principal); I25.10 Atherosclerotic heart disease of native coronary artery without angina pectoris; Z86.19 Personal history of other infectious and parasitic diseases

== ENCOUNTER → 2024-11-16 | Outpatient (CLI) | payer BC ==
[2024-11-16 15:23] LABS: PLATELET COUNT, AUTOMATED 212 10^3/uL (150-450)
[2024-11-16 15:49] LABS: ALT/SGPT 55.0 U/L (7.0-40); AST/SGOT 35.0 U/L (<34); CALCIUM LEVEL 10.1 MG/DL (8.5-10.1); CARBON DIOXIDE LEVEL 26.0 MMOL/L (20-31); CHLORIDE LEVEL 105.0 MMOL/L (98-107); CHOLESTEROL LEVEL 127.0 MG/DL (<200); CHOLESTEROL RISK RATIO 2.79 (<5); CREATININE FOR GFR 1.23 MG/DL (0.70-1.30); GLOMERULAR FILTRATION RATE 69.3 (>56); LDL CHOLESTEROL 55.5 MG/DL (<100); NON-HDL-C 81.5 MG/DL; POTASSIUM SERUM 4.8 MMOL/L (3.5-5.1); SODIUM LEVEL 140.0 MMOL/L (136-145); TRIGLYCERIDES LEVEL 130.0 MG/DL (<150)
[2024-11-16 15:55] LABS: THYROXINE (T4) 6.5 UG/DL (4.5-10.9)
[2024-11-16 17:13] LABS: ESTIMATED AVERAGE GLUCOSE 111.0 MG/DL (60-110)
== END ==
LOC: M PLALAB 09:11
PROVIDERS: ATTEND Ophthalmology
DX: E66.3 Overweight (principal)